=== PATIENT | female | born 1935 | race Caucasian/White ===

== ENCOUNTER 2016-06-14 22:45 | Inpatient (IN) | payer OTHER ==
[~2016-06-14] VITALS: Ht 154.9 cm; Wt 90.1 kg
[~2016-06-14 22:45] MED LIST: ACET-1487 PO; ALBUAER9 INH; CALC500C70 PO; CARB25TA12 PO; CEFU1TAB33 PO; CITA20TA9 PO; CLR10 PO; FURO-85 PO; GLC500 PO; INSDGIPEN SC; IPRA17AE2 INH; LIDO5DIS10 TD; MULTTAB58 PO; NVLGI/PEN SQ.; PRLSR20 PO; SIMV20TA2 PO; [UNRECOGNIZED DRUG - CODE] PO
[2016-06-14] MEDS ORDERED: SODIUM CHLORIDE 0.9% 500ML 500 ML IV STA (23:28)
--- NOTE | 2016-06-14 23:28 | EMERGENCY ROOM VISIT NOTE ---
History Report prepared by Maged: Tina Lopez Under the Supervision of: Dr. Maverick Elizondo M.D. First contact with patient: 23:17 Chief Complaint: GI ASSESSMENT Stated Complaint: SYNCOPE, VOMITING, DIARRHEA Nursing Triage Summary: Patient reports having sudden onset of Nausea and vomiting and loose stools around 10pm, patient went to the bathroom and had a syncople episode. EMS reports patient was lethergic upon arrival but would respond to verbal stimulation. EMS also reports patient had episodes ov emsis on the way to hospital. History of Present Illness The patient is a 80 year old female who presents to the Emergency Room via EMS with complaints of multiple episodes of vomiting and diarrhea that occurred this evening. The patient initially developed sudden onset nausea with vomiting and loose stool around 10PM. She was not feeling ill earlier in the day. While she was in the bathroom, she felt lightheaded. She denies loss of consciousness , falls, or head trauma. Per nursing notes, the patient had multiple episodes of emesis en route to the ED. Currently, the patient feels slightly lightheaded but does not feel nauseous. Denies chest pain, shortness of breath, abdominal pain, confusion, or other complaints. She has not taken any medications since the onset of her symptoms. Source of History: patient Onset: this evening Position: other (GI) Quality: other (vomiting and diarrhea) Timing: other (episodic) Associated Symptoms: No LOC, No SOB, No abdominal pain, No chest pain Note: Other symptoms: lightheadedness Review of Systems See HPI for pertinent positives & negatives. A total of 10 systems reviewed and were otherwise negative. Past Medical & Surgical Medical Problems: (1) Altered mental status (2) BPPV (benign paroxysmal positional vertigo) (3) Chronic diastolic CHF (congestive heart failure) (4) CKD (chronic kidney disease), stage III (5) COPD, mild (6) Depression (7) DM type 2 (diabetes mellitus, type 2) (8) Dyslipidemia (9) Gastroparesis (10) GERD (gastroesophageal reflux disease) (11) IBS (irritable bowel syndrome) (12) Lateral malleolar fracture (13) Left ulnar fracture (14) Osteoarthritis (15) Osteoporosis (16) Parkinson disease (17) possible sepsis (18) PVD (peripheral vascular disease) (19) Spinal stenosis Surgical Problems: (1) H/O spinal fusion (2) H/O tooth extraction (3) H/O tubal ligation (4) History of cataract surgery (5) History of cataract surgery (6) S/P cholecystectomy Family History Diabetes mellitus FH: cancer Social History Smoking Status: Former Smoker Alcohol Use: none Drug Use: none Marital Status: Housing Status: lives alone Occupation Status: retired Current/Historical Medications Scheduled Carbidopa/Levodopa (Sinemet 25MG/100MG), 1.5 TAB PO TID Furosemide (Lasix), 20 MG PO DAILY Insulin Aspart (Novolog Flexpen), 7 UNITS SQ AC Insulin Glargine (Lantus Solostar), 12 UNITS SC HS Lisinopril (Lisinopril), 2.5 MG PO QAM Metformin Hcl (Glucophage), 500 MG PO BID Multiple Vitamins W/ Minerals (Multivitamin Adults 50+), 1 TAB PO DAILY Omeprazole (Prilosec), 20 MG PO QAM Rasagiline Mesylate (Azilect), 1 MG PO QAM Simvastatin (Zocor), 20 MG PO HS Scheduled PRN Acetaminophen (Tylenol Arthritis Ext Rel), 650-1,300 MG PO BID PRN for Pain Albuterol Hfa (Ventolin Hfa), 2 PUFFS INH Q4 PRN for SOB/Wheezing Hydrocodone/Acetaminophen 5MG/325MG ([place] 5MG/325MG), 1 TABLET PO Q6 PRN for Pain Ipratropium [place] (Atrovent Hfa), 2 PUFFS INH Q4 PRN for SOB/Wheezing Lidocaine (Lidoderm Patch 5%), 1-2 PATCH TD DAILY PRN for Pain Loratadine (Claritin), 10 MG PO DAILY PRN for ALLERGIC REACTION Allergies Coded Allergies: Anesthetics, Amide (Verified Allergy, Unknown, UNKNOWN, 06/14/16) Celecoxib (Verified Allergy, Unknown, edema, 06/14/16) Pramipexole (Verified Allergy, Unknown, vomited, 06/14/16) Uncoded Allergies: TERRAMYCIN (Adverse Reaction, Intermediate, VOMITING, 10/06/15) Physical Exam Vital Signs Date Time Temp Pulse Resp B/P Pulse Ox O2 Delivery O2 Flow Rate FiO2 06/15/16 04:14 36.5 97 18 101/58 97 06/15/16 04:05 97 18 101/58 97 Room Air 06/15/16 03:01 36.5 100 20 144/67 94 Room Air 06/15/16 01:59 35.6 90 16 126/77 98 Room Air 06/15/16 01:02 86 18 112/65 96 Room Air 06/15/16 00:04 94 06/15/16 00:00 34.9 88 16 122/69 98 Room Air 06/14/16 22:55 91 18 104/67 92 Room Air Physical Exam GENERAL: Patient is elderly appearing, dehydrated appearing and in minimal distress. HEENT: No acute trauma, normocephalic atraumatic, mucous membranes dry, no nasal congestion, no scleral icterus. NECK: No stridor, no adenopathy, no meningismus, trachea is midline. LUNGS: No dyspnea. Clear to auscultation and equal bilaterally. No wheeze, no rhonchi. HEART: Mildly tachycardic rate and regular rhythm. No murmurs, rubs, gallops appreciated. ABDOMEN: Soft, nontender, bowel sounds positive, no masses appreciated, no peritonitis. BACK: No midline tenderness, no CVA tenderness EXTREMITIES: Normal motion all extremities, no cyanosis. Large nonedematous legs. NEUROLOGIC: Alert and oriented, no acute motor or sensory deficits, no focal weakness, cranial nerves grossly intact. SKIN: No rash, no jaundice, no diaphoresis. Medical Decision & Procedures ER Provider Diagnostic Interpretation: X ray results are stated below per my interpretation: Chest: 1 view: No infiltrate, no effusion, normal cardiac border. She has chronic lung disease similar to previous. CT results as stated below per interpretation by me and the radiologist: CT HEAD: Compared to 10/05/2015 No acute intracranial process. Chronic findings similar to prior study. Radiologist: Sherice Rodríguez MD Laboratory Results 06/14/16 22:18 Red Blood Count 4.17, Mean Corpuscular Volume 95.4, Mean Corpuscular Hemoglobin 32.4, Mean Corpuscular Hemoglobin Concent 33.9, Mean Platelet Volume 10.8, Neutrophils (%) (Auto) 50.6, Lymphocytes (%) (Auto) 36.6, Monocytes (%) (Auto) 9.6, Eosinophils (%) (Auto) 2.6, Basophils (%) (Auto) 0.2, Neutrophils # (Auto) 6.77, Lymphocytes # (Auto) 4.90, Monocytes # (Auto) 1.29, Eosinophils # (Auto) 0.35, Basophils # (Auto) 0.03 06/14/16 22:18 Test 06/14/16 01:13 06/14/16 22:18 Urine Color YELLOW Urine Appearance CLOUDY (CLEAR) Urine pH 5.0 (4.5-7.5) Urine Specific [place] 1.020 (1.000-1.030) Urine Protein NEG (NEG) Urine Glucose (UA) NEG (NEG) Urine Ketones 1+ (NEG) Urine Occult Blood NEG (NEG) Urine Nitrite NEG (NEG) Urine Bilirubin NEG (NEG) Urine Urobilinogen NEG (NEG) Urine Leukocyte Esterase MODERATE (NEG) Urine WBC (Auto) >30 /hpf (0-5) Urine RBC (Auto) 0-4 /hpf (0-4) Urine Hyaline Casts (Auto) 5-10 /lpf (0-5) Urine Epithelial Cells (Auto) 10-20 /lpf (0-5) Urine Bacteria (Auto) 1+ (NEG) Urine Pathogenic Casts /lpf (0) White Blood Count 13.39 K/uL (4.8-10.8) Red Blood Count 4.17 M/uL (4.2-5.4) Hemoglobin 13.5 g/dL (12.0-16.0) Hematocrit 39.8 % (37-47) Mean Corpuscular Volume 95.4 fL (80-100) Mean Corpuscular Hemoglobin 32.4 pg (25-34) Mean Corpuscular Hemoglobin Concent 33.9 g/dl (32-36) Platelet Count 364 K/uL (130-400) Mean Platelet Volume 10.8 fL (7.4-10.4) Neutrophils (%) (Auto) 50.6 % Lymphocytes (%) (Auto) 36.6 % Monocytes (%) (Auto) 9.6 % Eosinophils (%) (Auto) 2.6 % Basophils (%) (Auto) 0.2 % Neutrophils # (Auto) 6.77 K/uL (1.4-6.5) Lymphocytes # (Auto) 4.90 K/uL (1.2-3.4) Monocytes # (Auto) 1.29 K/uL (0.11-0.59) Eosinophils # (Auto) 0.35 K/uL (0-0.5) Basophils # (Auto) 0.03 K/uL (0-0.2) RDW Standard Deviation 47.8 fL (36.4-46.3) RDW Coefficient of Variation 13.9 % (11.5-14.5) Immature Granulocyte % (Auto) 0.4 % Immature Granulocyte # (Auto) 0.05 K/uL (0.00-0.02) Prothrombin Time 10.9 SECONDS (9.0-12.0) Prothromb Time International Ratio 1.0 (0.9-1.1) Activated Partial Thromboplast Time 26.4 SECONDS (21.0-31.0) Partial Thromboplastin Ratio 1.0 Anion Gap 13.0 mmol/L (3-11) Est Creatinine Clear Calc Drug Dose 44.4 ml/min Estimated GFR () 55.7 Estimated GFR (Non- 48.1 BUN/Creatinine Ratio 24.9 (10-20) Calcium Level 8.9 mg/dl (8.5-10.1) Phosphorus Level 3.5 mg/dl (2.5-4.9) Magnesium Level 1.6 mg/dl (1.8-2.4) Total Bilirubin 0.3 mg/dl (0.2-1) Direct Bilirubin 0.1 mg/dl (0-0.2) Aspartate Amino Transf (AST/SGOT) 18 U/L (15-37) Alanine Aminotransferase (ALT/SGPT) 7 U/L (12-78) Alkaline Phosphatase 98 U/L (45-117) Total Creatine Kinase 65 U/L (26-192) Creatine Kinase MB 0.7 ng/ml (0.5-3.6) Creatine Kinase MB Ratio 1.1 (0-3.0) Troponin I < 0.015 ng/ml (0-0.045) Total Protein 7.9 gm/dl (6.4-8.2) Albumin 4.0 gm/dl (3.4-5.0) Lipase 110 U/L (73-393) Laboratory results as reviewed by me. Medications Administered Medications (Trade) Dose Ordered Sig/Brian Route Start Time Stop Time Status Last Admin Dose Admin Sodium Chloride (Nss 500ml) 500 ml @ 999 mls/hr Q31M STAT IV 06/14/16 23:28 06/14/16 23:58 DC 06/14/16 23:46 999 MLS/HR Ondansetron HCl (Zofran Inj) 4 mg NOW STAT IV 06/14/16 23:29 06/14/16 23:30 DC 06/14/16 23:46 4 MG Ceftriaxone Sodium (Rocephin Inj) 1 gm NOW STAT IV 06/15/16 02:32 06/15/16 02:33 DC 06/15/16 04:00 1 GM ECG Indication: other (lightheaded) Rate (beats per minute): 94 Rhythm: normal sinus Findings: no acute ischemic change, no ectopy ED Course 2322: The patient was evaluated in room B4. A complete history and physical exam was performed. 232: Ordered NSS 500 ml @ 999 mls/hr IV, Zofran Inj 4m g IV. 0055: I reassessed the patient. Urine sample will be obtained. 231: Ordered Rocephin Inj 1 gm IV. 0245: I reassessed the patient. She was asleep and her temperature was improving. 0300: I discussed the case with Dr. Farhan Collier Hospitalist. He requested that I order blood cultures and a lactic. The patient will be evaluated for further management. Medical Decision Differential: Sepsis, Infectious (UTI/Pneumonia/Meningitis/etc), Metabolic/ Electrolyte Abnormality, Cardiac, Hepatic, Endocrine, Toxicologic, Neurologic, amongst other pathologies entertained. 80 yr old female arrives with complaint of nausea, vomiting, diarrhea and near syncopal event along with feeling weak. Consistent with local GI bug going around though with near syncope felt further evaluation necessary. Found to be mildly hypothermic and with elevated WBC felt that UA straight cath necessary as no urination. CXR clear. UA is concerning for infection though difficult obtaining thus delay. Patient was initially given zofran and fluids stating feeling much improved. She is not bacteremic nor septic appearing however with findings will go ahead and get cultures/lactic acid. She has no clear evidence that this was ACS related. She is stable, no distress and sleeping comfortably. Given constellation of findings will being in for further monitoring. Consults Time Called: 0235 Consulting Physician: Dr. Farhan Collier Hospitalist Returned Call: 0300 I discussed the case with him. He requested that I order blood cultures and a lactic. The patient will be evaluated for further management. Impression Primary Impression: UTI (urinary tract infection) Additional Impressions: Hypomagnesemia Hypothermia Nausea, vomiting and diarrhea Scribe Attestation The scribe's documentation has been prepared under my direction and personally reviewed by me in its entirety. I confirm that the note above accurately reflects all work, treatment, procedures, and medical decision making performed by me. Departure Information Dispostion Being Evaluated By Hospitalist Referrals Tsering Petersen M.D. (PCP) Patient Instructions My [facility] Problem Qualifiers Primary Impression: UTI (urinary tract infection) Urinary tract infection type: acute cystitis Hematuria presence: without hematuria Qualified Codes: N30.00 - Acute cystitis without hematuria Additional Impressions: Hypothermia Encounter type: initial encounter Qualified Codes: T68.XXXA - Hypothermia, initial encounter
[2016-06-14] MEDS ORDERED: ONDANSETRON INJ 2 MG/ML 2 ML VIAL IV STA (23:29)
[2016-06-14 23:37] LABS: BASO % 0.2 %; BASO ABS # 0.03 K/uL (0-0.2); COMPLETE YES; EOS % 2.6 %; HEMATOCRIT 39.8 % (37-47); IG% 0.4 %; LYMPH % 36.6 %; MEAN CELL VOLUME 95.4 fL (80-100); MEAN CORPUSCULAR HEMOGLOBIN 32.4 pg (25-34); MEAN CORPUSCULAR HGB CONC 33.9 g/dl (32-36); MEAN PLATELET VOLUME 10.8 fL (7.4-10.4); MONO % 9.6 %; NEUT % 50.6 %; PLATELET COUNT 364 K/uL (130-400); RED BLOOD COUNT 4.17 M/uL (4.2-5.4); WHITE BLOOD COUNT 13.39 K/uL (4.8-10.8)
[2016-06-14 23:44] LABS: PROTHROMBIN TIME (PATIENT) 10.9 SECONDS (9.0-12.0)
[2016-06-14] MEDS ORDERED: RASA1TAB PO (23:53)
[2016-06-14] MEDS ORDERED: PRLSR20 PO (23:54)
[2016-06-14] MEDS ORDERED: MULT-916 PO (23:55)
[2016-06-14] MEDS ORDERED: GLC/500 PO (23:56)
[2016-06-14] MEDS ORDERED: LISI2.5T5 PO (23:58)
[2016-06-14] MEDS ORDERED: HYDR-5688 PO (23:58)
[2016-06-15] MEDS ORDERED: INSDGIPEN SC
[2016-06-15] MEDS ORDERED: NVLGI/PEN SQ
[2016-06-15 00:01] LABS: ALT/SGPT 7 U/L (12-78); BLOOD UREA NITROGEN 27 mg/dl (7-18); BUN/CREATININE RATIO 24.9 (10-20); CALCIUM 8.9 mg/dl (8.5-10.1); CARBON DIOXIDE 25 mmol/L (21-32); CHLORIDE 105 mmol/L (98-107); GLUCOSE 92 mg/dl (70-99); MAGNESIUM 1.6 mg/dl (1.8-2.4); POTASSIUM 3.5 mmol/L (3.5-5.1); SODIUM 143 mmol/L (136-145)
[2016-06-15] MEDS ORDERED: NF656 TD (00:02)
[2016-06-15] MEDS ORDERED: VNTHFA/IN INH (00:03)
[2016-06-15] MEDS ORDERED: ATRIN INH (00:03)
[2016-06-15 00:05] LABS: ALKALINE PHOSPHATASE 98 U/L (45-117); AST/SGOT 18 U/L (15-37); CKMB/CK RATIO 1.1 (0-3.0); PHOSPHORUS 3.5 mg/dl (2.5-4.9)
[2016-06-15 01:33] LABS: URINE APPEARANCE CLOUDY (CLEAR); URINE BILIRUBIN NEG (NEG); URINE COLOR YELLOW; URINE NITRITE NEG (NEG); UROBILINOGEN NEG (NEG); ZZUR CULT IF INDIC CLEAN CATCH YES
[2016-06-15 01:57] LABS: MANUAL MICROSCOPIC REQUIRED? NO; REVIEW REQ? YES
[2016-06-15] MEDS: CEFTRIAXONE SOD INJ 1 GM ADDVIAL IV STA ×2 (03:00→04:00)
[2016-06-15] MEDS ORDERED: ONDANSETRON INJ 2 MG/ML 2 ML VIAL IV PRN (03:15)
--- NOTE | 2016-06-15 03:48 | History and Physical ---
History & Physical Date & Time of Service: Jun 15, 2016 at 03:47 . Chief Complaint: nausea, vomiting, diarrhea, confusion . Primary Care Physician: Tsering Petersen M.D. . History of Present Illness Source: patient, clinic records, hospital records 80 YO female followed by Dr. Petersen. History of diastolic CHF, DM, and other problems noted below. She was in her usual state of health until this evening when she developed loose stools followed by nausea and vomiting. No associated abdominal pain. No melena or hematochezia. No fever, but she had some chills and sweats. No dysuria or hematuria. Family noted that she was confused. Brought to ED for evaluation. . Past Medical/Surgical History Medical Problems: (1) BPPV (benign paroxysmal positional vertigo) Status: Chronic (2) Chronic diastolic CHF (congestive heart failure) Status: Chronic (3) CKD (chronic kidney disease), stage III Status: Chronic (4) COPD, mild Status: Chronic (5) Depression Status: Chronic (6) DM type 2 (diabetes mellitus, type 2) Status: Chronic (7) Dyslipidemia Status: Chronic (8) Gastroparesis Status: Chronic (9) GERD (gastroesophageal reflux disease) Status: Chronic (10) IBS (irritable bowel syndrome) Status: Chronic (11) Lateral malleolar fracture Permanent Comment: right, s/p repair Status: Chronic (12) Left ulnar fracture Permanent Comment: s/p repair Status: Chronic (13) Osteoarthritis Status: Chronic (14) Osteoporosis Status: Chronic (15) Parkinson disease Status: Chronic (16) PVD (peripheral vascular disease) Status: Chronic (17) Spinal stenosis Status: Chronic Surgical Problems: (1) H/O spinal fusion Status: Chronic (2) H/O tooth extraction Status: Chronic (3) H/O tubal ligation Status: Chronic (4) History of cataract surgery Status: Chronic (5) History of cataract surgery Status: Chronic (6) S/P cholecystectomy Status: Chronic Family History Diabetes mellitus FH: cancer Social History Smoking Status: Former Smoker Alcohol Use: none Drug Use: none Marital Status: Housing status: lives with family Occupational Status: retired Immunizations History of Influenza Vaccine: Yes Influenza Vaccine Date: Mar 01, 2015 History of Tetanus Vaccine?: Yes Tetanus Immunization Date: Mar 19, 2012 History of Pneumococcal: Yes Pneumococcal Date: Nov 24, 2014 History of Hepatitis B Vaccine: Unknown Multi-Drug Resistant Organisms History of MDRO: No Allergies Coded Allergies: Anesthetics, Amide (Verified Allergy, Unknown, UNKNOWN, 06/14/16) Celecoxib (Verified Allergy, Unknown, edema, 06/14/16) Pramipexole (Verified Allergy, Unknown, vomited, 06/14/16) Uncoded Allergies: TERRAMYCIN (Adverse Reaction, Intermediate, VOMITING, 10/06/15) Home Medications Scheduled Carbidopa/Levodopa (Sinemet 25MG/100MG), 1.5 TAB PO TID Furosemide (Lasix), 20 MG PO DAILY Insulin Aspart (Novolog Flexpen), 7 UNITS SQ AC Insulin Glargine (Lantus Solostar), 12 UNITS SC HS Lisinopril (Lisinopril), 2.5 MG PO QAM Metformin Hcl (Glucophage), 500 MG PO BID Multiple Vitamins W/ Minerals (Multivitamin Adults 50+), 1 TAB PO DAILY Omeprazole (Prilosec), 20 MG PO QAM Rasagiline Mesylate (Azilect), 1 MG PO QAM Simvastatin (Zocor), 20 MG PO HS Scheduled PRN Acetaminophen (Tylenol Arthritis Ext Rel), 650-1,300 MG PO BID PRN for Pain Albuterol Hfa (Ventolin Hfa), 2 PUFFS INH Q4 PRN for SOB/Wheezing Hydrocodone/Acetaminophen 5MG/325MG ([place] 5MG/325MG), 1 TABLET PO Q6 PRN for Pain Ipratropium [place] (Atrovent Hfa), 2 PUFFS INH Q4 PRN for SOB/Wheezing Lidocaine (Lidoderm Patch 5%), 1-2 PATCH TD DAILY PRN for Pain Loratadine (Claritin), 10 MG PO DAILY PRN for ALLERGIC REACTION Review of Systems Constitutional: + chills, + sweats, No fever, No weight loss Eyes: No diplopia, No worsening of vision ENT: + nasal symptoms, No hearing loss, No sore throat Respiratory: No cough, No shortness of breath Cardiovascular: + edema (chronic LE edema), No chest pain Abdomen: + diarrhea, + nausea, + vomiting, No GI bleeding, No pain Musculoskeletal: + joint pain Genitourinary - Female: No dysuria, No hematuria Neurologic: + problem reported (Parkinson's disease) Endocrine: + excessive thirst, + excessive urination, + problem reported ( blood sugars fluctuate) Hematologic / Lymphatic: No abnormal bleeding/bruising Integumentary: No new/changing skin lesions, No rash Physical Exam Vital Signs Date Time Temp Pulse Resp B/P Pulse Ox O2 Delivery O2 Flow Rate FiO2 06/15/16 03:01 36.5 100 20 144/67 94 Room Air 06/15/16 01:59 35.6 90 16 126/77 98 Room Air 06/15/16 01:02 86 18 112/65 96 Room Air 06/15/16 00:04 94 06/15/16 00:00 34.9 88 16 122/69 98 Room Air 06/14/16 22:55 91 18 104/67 92 Room Air General Appearance: WD/WN, no apparent distress, + obese Head: normocephalic, atraumatic Eyes: normal inspection, PERRL, EOMI, sclerae normal (conjunctivae pink) ENT: normal ENT inspection, hearing grossly normal, pharynx normal, + pertinent finding (endentulous) Neck: supple, no adenopathy, thyroid normal, no JVD, trachea midline Respiratory/Chest: lungs clear, no respiratory distress, no accessory muscle use Cardiovascular: regular rate, rhythm, no edema, no gallop, no JVD, no murmur, + pertinent finding (chronic-appearing lymphedema bilateral lower extremities) Abdomen/GI: non tender, soft, no organomegaly, no pulsatile mass, + pertinent finding (quiet bowel sounds) Back: no CVA tenderness Extremities/Musculoskelatal: no calf tenderness, normal capillary refill, + pedal edema, + pertinent finding (no diabetic foot lesions) Neurologic/Psych: print color matcher II-XII nml as tested (PERRL, EOMI, no facial palsy), alert, normal mood/affect, oriented x 3 Skin: normal color, warm/dry, no rash Lymphatic: no adenopathy Diagnostics Laboratory Results Results Past 24 Hours Test 06/14/16 22:18 Range/Units White Blood Count 13.39 4.8-10.8 K/uL Red Blood Count 4.17 4.2-5.4 M/uL Hemoglobin 13.5 12.0-16.0 g/dL Hematocrit 39.8 37-47 % Mean Corpuscular Volume 95.4 80-100 fL Mean Corpuscular Hemoglobin 32.4 25-34 pg Mean Corpuscular Hemoglobin Concent 33.9 32-36 g/dl Platelet Count 364 130-400 K/uL Mean Platelet Volume 10.8 7.4-10.4 fL Neutrophils (%) (Auto) 50.6 % Lymphocytes (%) (Auto) 36.6 % Monocytes (%) (Auto) 9.6 % Eosinophils (%) (Auto) 2.6 % Basophils (%) (Auto) 0.2 % Neutrophils # (Auto) 6.77 1.4-6.5 K/uL Lymphocytes # (Auto) 4.90 1.2-3.4 K/uL Monocytes # (Auto) 1.29 0.11-0.59 K/uL Eosinophils # (Auto) 0.35 0-0.5 K/uL Basophils # (Auto) 0.03 0-0.2 K/uL RDW Standard Deviation 47.8 36.4-46.3 fL RDW Coefficient of Variation 13.9 11.5-14.5 % Immature Granulocyte % (Auto) 0.4 % Immature Granulocyte # (Auto) 0.05 0.00-0.02 K/uL Prothrombin Time 10.9 9.0-12.0 SECONDS Prothromb Time International Ratio 1.0 0.9-1.1 Activated Partial Thromboplast Time 26.4 21.0-31.0 SECONDS Partial Thromboplastin Ratio 1.0 Sodium Level 143 136-145 mmol/L Potassium Level 3.5 3.5-5.1 mmol/L Chloride Level 105 98-107 mmol/L Carbon Dioxide Level 25 21-32 mmol/L Anion Gap 13.0 3-11 mmol/L Blood Urea Nitrogen 27 7-18 mg/dl Creatinine 1.10 0.60-1.20 mg/dl Est Creatinine Clear Calc Drug Dose 44.4 ml/min Estimated GFR () 55.7 Estimated GFR (Non- 48.1 BUN/Creatinine Ratio 24.9 10-20 Random Glucose 92 70-99 mg/dl Calcium Level 8.9 8.5-10.1 mg/dl Phosphorus Level 3.5 2.5-4.9 mg/dl Magnesium Level 1.6 1.8-2.4 mg/dl Total Bilirubin 0.3 0.2-1 mg/dl Direct Bilirubin 0.1 0-0.2 mg/dl Aspartate Amino Transf (AST/SGOT) 18 15-37 U/L Alanine Aminotransferase (ALT/SGPT) 7 12-78 U/L Alkaline Phosphatase 98 45-117 U/L Total Creatine Kinase 65 26-192 U/L Creatine Kinase MB 0.7 0.5-3.6 ng/ml Creatine Kinase MB Ratio 1.1 0-3.0 Troponin I < 0.015 0-0.045 ng/ml Total Protein 7.9 6.4-8.2 gm/dl Albumin 4.0 3.4-5.0 gm/dl Lipase 110 73-393 U/L Microbiology Results 06/15/16 Blood Culture, Dori Batch Pending 06/15/16 Blood Culture, Dori Batch Pending Diagnostic Radiology PORT CXR (preliminary reading by undersigned): right rib fractures ~ 5th and 6th ribs posteriorly no infiltrates, effusions, CHF CT HEAD (preliminary report by [facility]): chronic findings no acute changes . EKG EKG performed at 23:38 reviewed and demonstrated NSR at 94 / minute, no acute ST or T-wave changes. . Impression Assessment and Plan POSSIBLE SEPSIS Presented with nausea, vomiting, diarrhea, confusion. Rectal temp in ED 34.9. Tachycardic as high as 110. WBC 13,000. Meets SIRS criteria. May have sepsis- source uncertain, possibly GI or urinary tract. Cath UA showed moderate leukocyte esterase, > 30 WBC's, 1+ bacteria. Hemodynamically stable. Serum lactate 0.8. Blood and urine cultures obtained. Received broad spectrum IV coverage with ceftriaxone in ED. Will change antibiotic therapy to piperacillin / tazobactam for broader coverage pending culture results. NAUSEA, VOMITING, DIARRHEA May have viral gastroenteritis or other process. Has taken antibiotics for UTI's, but not in recent months. Check stools for C diff and routine enteric pathogens. Ischemic bowel unlikely with normal lactate. Further evaluation if symptoms do not improve. ALTERED MENTAL STATUS Noted by family at home. Head CT negative. Probably encephalopathy secondary to infection. Improved in ED. Follow. HYPOMAGNESEMIA Serum Mg = 1.6. IV repletion. Follow. CHRONIC DIASTOLIC CHF Compensated. Hold furosemide due to GI symptoms. Follow. DM TYPE 2 Usually fairly well-controlled. Hold oral agents due to acute illness. Lantus + NovoLog per protocol. VTE PROPHYLAXIS Moderate risk for VTE. SQ heparin. Ambulate. RESUSCITATION STATUS Discussed with patient. She has a living will. She prefers a natural passing does not wish to have extraordinary measures, including CPR, attempted in the event of a cardiopulmonary arrest under any circumstances. Therefore, code status = "Level 5" (DNR). . VTE Prophylaxis VTE Risk Assessment Done? Y/N: Yes Risk Level: Moderate Given or contraindicated: Unfractionated heparin SQ
[2016-06-15 04:41] VITALS: BP 149/79; PULSE 105; TEMP 36.8; O2SAT 96; BMI 36.2
[2016-06-15] MEDS ORDERED: PIPERACILL/TAZOBAC IV 0 GM in DEXTROSE 5% 100ML 100 ML IV SCH (06:00)
[2016-06-15] MEDS ORDERED: IPRATROPIUM BROMIDE HFA INHALER INH PRN (06:00)
[2016-06-15] MEDS ORDERED: ALBUTEROL HFA 8 GM INHALER INH PRN (06:00)
[2016-06-15] MEDS ORDERED: PIPERACILL/TAZOBAC IV 4.5 GM in DEXTROSE 5% 100ML IV ONE (06:30)
[2016-06-15] MEDS ORDERED: PIPERACILL/TAZOBAC CONSULT ACTIVE PRN (06:30)
--- NOTE | 2016-06-15 06:39 | DIAGNOSTIC IMAGING REPORT ---
CHEST ONE VIEW PORTABLE CLINICAL HISTORY: Generalized Weakness SYNCOPE, VOMITING, DIARRHEA COMPARISON STUDY: No previous studies for comparison. FINDINGS: The heart is at the upper limits of normal in size. There is aortic tortuosity. There is no failure. There is no focal pulmonary consolidation. There are old bilateral rib fractures. There is an old proximal left humeral deformity. No pleural effusions are visualized.[ IMPRESSION: No active disease in the chest. Electronically signed by: Nile Fulton M.D. 06/15/2016 6:37 AM Dictated Date/Time: 06/15/2016 6:37 AM
[2016-06-15 06:41] LABS: HEMATOCRIT 36.7 % (37-47); MEAN CELL VOLUME 96.1 fL (80-100); MEAN CORPUSCULAR HEMOGLOBIN 31.7 pg (25-34); MEAN PLATELET VOLUME 10.5 fL (7.4-10.4); PLATELET COUNT 297 K/uL (130-400); RED BLOOD COUNT 3.82 M/uL (4.2-5.4); WHITE BLOOD COUNT 10.11 K/uL (4.8-10.8)
--- NOTE | 2016-06-15 06:50 | DIAGNOSTIC IMAGING REPORT ---
CT HEAD WITHOUT CONTRAST (CT) CLINICAL HISTORY: Syncope, generalized weakness. COMPARISON STUDY: 10/05/2015 TECHNIQUE: Axial CT of the brain is performed from the vertex to the skull base. IV contrast was not administered for this examination. CT DOSE: 537.48 mGy.cm FINDINGS: No intra or extra-axial mass lesions are visualized. There is no CT evidence of acute cortical infarction. There is no evidence of midline shift. There is no acute hemorrhage. No calvarial fractures are visualized. There are patchy white matter hypodensities likely on a small vessel basis. There is no evidence of pathologic ventricular dilatation. There is no evidence of acute sinusitis IMPRESSION: No acute intracranial findings Electronically signed by: Nile Fulton M.D. 06/15/2016 6:48 AM Dictated Date/Time: 06/15/2016 6:47 AM
[2016-06-15 07:18] LABS: BUN/CREATININE RATIO 24.4 (10-20); CALCIUM 8.8 mg/dl (8.5-10.1); CREATININE 1.1 mg/dl (0.60-1.20); POTASSIUM 4.2 mmol/L (3.5-5.1)
[2016-06-15] MEDS: MAG SULFATE IV SCH ×2 (07:48→14:16)
[2016-06-15] MEDS: LACTATED RINGER S IV SCH ×2 (07:48→14:16)
[2016-06-15 07:50] VITALS: BP 102/66; PULSE 99; TEMP 36.4; O2SAT 94
[2016-06-15] MEDS: INSULIN ASPART 100 UNITS/ML 3 ML PEN SC SCH ×4 (07:51→21:00)
[2016-06-15] MEDS: HEPARIN SOD 5000 UNIT/0.5 ML CARP SQ SCH ×2 (07:53→21:00)
[2016-06-15] MEDS: PANTOprazole SOD 40 MG TAB PO SCH (07:55)
[2016-06-15] MEDS: ACETAMINOPHEN 325 MG TAB PO PRN ×2 (07:55→23:57)
[2016-06-15] MEDS: LISINOPRIL 2.5 MG TAB PO SCH (07:56)
[2016-06-15] MEDS: CARBIDOPA/LEVODOPA 25/100MG TAB PO SCH ×3 (07:57→20:50)
[2016-06-15] MEDS: RASAGILINE 0.5 MG TAB PO SCH (07:58)
[2016-06-15] MEDS: PIPERACILL/TAZOBAC IV 4.5 GM in DEXTROSE 5% 100ML IV SCH ×2 (10:06→18:26)
[2016-06-15 10:59] LABS: ESTIMATED AVERAGE GLUCOSE 183 mg/dl; HA1C FLAG Normal (Normal)
--- NOTE | 2016-06-15 13:28 | Progress Note ---
Medicine Progress Note Date & Time of Visit: Jun 15, 2016 at 13:01. Subjective 80 yo F that developed acute vomiting and diarrhea last night around 9pm. She came to the ER as her caregiver activated her life alert system when she became altered. She reports feeling better this morning after some IVF, and she is tolerating clears right now. When I mentioned mashed potatoes, she was excited about that, so will advance her diet to full liquids for this evening. Cautioned her against dairy, caffeine, and sugar. Denies abdominal pain, chest pain, shortness of breath today. She reports one episode of loose stool this morning. Otherwise feels better today. Objective Last 8 Hrs Date Time Temp Pulse Resp B/P Pulse Ox O2 Delivery O2 Flow Rate FiO2 06/15/16 08:00 Room Air 06/15/16 07:50 36.4 99 16 102/66 94 Room Air Physical Exam: GEN: WNWD, in no acute distress, alert and appropriate, in bedside chair HEENT: NC/AT, normal sclerae CARDIO: reg rate, S1/2 heard without m/g/r LUNGS: CTA bilaterally, no crackles, rales or wheezes, good diaphragmatic excursion ABD: +BS, soft, non-tender, non-distended, no rebound or guarding EXTREMITY: no LE swelling or edema, extremities are warm and well-perfused NEURO: CN 2-12 grossly intact, sensation intact throughout MUSC: moves all extremities equally, no gross focal deficits SKIN: warm and dry Laboratory Results: Last 24 Hours Test 06/14/16 22:18 06/15/16 04:07 06/15/16 06:26 06/15/16 07:04 White Blood Count 13.39 K/uL 10.11 K/uL Red Blood Count 4.17 M/uL 3.82 M/uL Hemoglobin 13.5 g/dL 12.1 g/dL Hematocrit 39.8 % 36.7 % Mean Corpuscular Volume 95.4 fL 96.1 fL Mean Corpuscular Hemoglobin 32.4 pg 31.7 pg Mean Corpuscular Hemoglobin Concent 33.9 g/dl 33.0 g/dl Platelet Count 364 K/uL 297 K/uL Mean Platelet Volume 10.8 fL 10.5 fL Neutrophils (%) (Auto) 50.6 % Lymphocytes (%) (Auto) 36.6 % Monocytes (%) (Auto) 9.6 % Eosinophils (%) (Auto) 2.6 % Basophils (%) (Auto) 0.2 % Neutrophils # (Auto) 6.77 K/uL Lymphocytes # (Auto) 4.90 K/uL Monocytes # (Auto) 1.29 K/uL Eosinophils # (Auto) 0.35 K/uL Basophils # (Auto) 0.03 K/uL RDW Standard Deviation 47.8 fL 48.5 fL RDW Coefficient of Variation 13.9 % 13.9 % Immature Granulocyte % (Auto) 0.4 % Immature Granulocyte # (Auto) 0.05 K/uL Prothrombin Time 10.9 SECONDS Prothromb Time International Ratio 1.0 Activated Partial Thromboplast Time 26.4 SECONDS Partial Thromboplastin Ratio 1.0 Sodium Level 143 mmol/L 142 mmol/L Potassium Level 3.5 mmol/L 4.2 mmol/L Chloride Level 105 mmol/L 106 mmol/L Carbon Dioxide Level 25 mmol/L 25 mmol/L Anion Gap 13.0 mmol/L 11.0 mmol/L Blood Urea Nitrogen 27 mg/dl 27 mg/dl Creatinine 1.10 mg/dl 1.10 mg/dl Est Creatinine Clear Calc Drug Dose 44.4 ml/min 42.2 ml/min Estimated GFR () 55.7 55.7 Estimated GFR (Non- 48.1 48.1 BUN/Creatinine Ratio 24.9 24.4 Random Glucose 92 mg/dl 200 mg/dl Calcium Level 8.9 mg/dl 8.8 mg/dl Phosphorus Level 3.5 mg/dl Magnesium Level 1.6 mg/dl Total Bilirubin 0.3 mg/dl 0.4 mg/dl Direct Bilirubin 0.1 mg/dl Aspartate Amino Transf (AST/SGOT) 18 U/L 13 U/L Alanine Aminotransferase (ALT/SGPT) 7 U/L 11 U/L Alkaline Phosphatase 98 U/L 80 U/L Total Creatine Kinase 65 U/L Creatine Kinase MB 0.7 ng/ml Creatine Kinase MB Ratio 1.1 Troponin I < 0.015 ng/ml Total Protein 7.9 gm/dl 6.8 gm/dl Albumin 4.0 gm/dl 3.4 gm/dl Lipase 110 U/L 62 U/L Bedside Lactic Acid Venous 0.80 mmol/L Estimated Average Glucose 183 mg/dl Hemoglobin A1c 8.0 % Lactic Acid Level 1.5 mmol/L Globulin 3.4 gm/dl Albumin/Globulin Ratio 1.0 Bedside Glucose 193 mg/dl Test 06/15/16 11:41 Bedside Glucose 218 mg/dl Date/Time Source Procedure Growth Status 06/15/16 04:02 Blood Blood Culture Pending Received 06/15/16 03:57 Blood Blood Culture Pending Received Assessment & Plan 80 yo F with acute gastroenteritis that began last night. Acute Gastroenteritis Presented with nausea, vomiting, diarrhea, confusion. Rectal temp in ED 34.9. May have viral gastroenteritis or other process. Check stools for C diff and routine enteric pathogens. Ischemic bowel unlikely with normal lactate. Tachycardic as high as 110-->improved to 90s today WBC 13,000-->resolved to 10K -->overall improved, will finish the 500cc of fluid left in this bag at lower rate 100cc/hr, then stop. -->still waiting on stool studies, will add norovirus as multiple family members have been sick with similar symptoms. BACTERIURIA Cath UA showed moderate leukocyte esterase, > 30 WBC's, 1+ bacteria. Urine cultures obtained. Has taken antibiotics for UTI's, but not in recent months. Received broad spectrum IV coverage with ceftriaxone in ED. Will change antibiotic therapy to piperacillin / tazobactam for broader coverage pending culture results. -->06/15: cont Zosyn for now until culture results return ALTERED MENTAL STATUS Noted by family at home. Head CT negative. Probably encephalopathy secondary to infection. Improved in ED-->today is resolved HYPOMAGNESEMIA Serum Mg = 1.6. IV repletion -->will give an additional 2 grams of MgSO4 now and recheck in am CHRONIC DIASTOLIC CHF Compensated. Hold furosemide due to GI symptoms. DM TYPE 2 Usually fairly well-controlled. Hold oral agents due to acute illness. Lantus + NovoLog per protocol. VTE PROPHYLAXIS Moderate risk for VTE. SQ heparin. Ambulate. RESUSCITATION STATUS Discussed with patient. She has a living will. She prefers a natural passing does not wish to have extraordinary measures, including CPR, attempted in the event of a cardiopulmonary arrest under any circumstances. Therefore, code status = "Level 5" (DNR). Chelle Becker DO [facility] Hospitalist Current Inpatient Medications: Current Inpatient Medications Medications (Trade) Dose Ordered Sig/Brian Route Start Time Stop Time Status Last Admin Dose Admin Acetaminophen (Tylenol Tab) 650 mg Q4H PRN PO 06/15/16 03:15 07/15/16 03:14 06/15/16 07:55 650 MG Ondansetron HCl (Zofran Inj) 4 mg Q6H PRN IV 06/15/16 03:15 07/15/16 03:14 Albuterol (Ventolin Hfa Inhaler) 2 puffs Q4 PRN INH 06/15/16 06:00 07/15/16 05:59 Carbidopa/Levodopa (Sinemet 25/ 100MG Tab) 1.5 tab TID PO 06/15/16 09:00 07/15/16 08:59 06/15/16 07:57 1.5 TAB Ipratropium [place] (Atrovent Hfa Inhaler) 2 puffs Q4 PRN INH 06/15/16 06:00 07/15/16 05:59 Lisinopril (Zestril Tab) 2.5 mg QAM PO 06/15/16 09:00 07/15/16 08:59 06/15/16 07:56 2.5 MG Simvastatin (Zocor Tab) 20 mg HS PO 06/15/16 21:00 07/15/16 20:59 Pantoprazole Sodium (Protonix Tab) 40 mg QAM PO 06/15/16 09:00 07/15/16 08:59 06/15/16 07:55 40 MG Rasagiline (Azilect) 1 mg DAILY PO 06/15/16 09:00 07/15/16 08:59 06/15/16 07:58 1 MG Insulin Glargine (Lantus Solostar Pen) 12 unit HS SC 06/15/16 21:00 07/15/16 20:59 Insulin Aspart (novoLOG ASPART) SLIDING SCAL... ACHS SC 06/15/16 07:00 07/15/16 06:59 06/15/16 12:11 4 UNITS Heparin Sodium (Porcine) 5000 unit 5,000 unit Q12 SQ 06/15/16 09:00 07/15/16 08:59 06/15/16 07:53 5,000 UNIT Magnesium Sulfate 1 gm/Lactated Ringer's 1,002 ml @ 125 mls/hr Q8H1M IV 06/15/16 06:15 07/15/16 06:14 06/15/16 07:48 125 MLS/HR Piperacillin Sod/ Tazobactam Sod/ Dextrose (Zosyn Iv/D5 100ml) 120 ml @ 30 mls/hr Q8H IV 06/15/16 10:00 06/20/16 09:59 06/15/16 10:06 30 MLS/HR Piperacillin Sod/ Tazobactam Sod (Consult) 1 ea UD PRN N/A 06/15/16 06:30 07/15/16 06:29
[2016-06-15] MEDS: MAGNESIUM SULFATE 1GM / D5W 1 GM in PREMIXED IN D5W 100 ML IV SCH ×2 (14:17→15:26)
[2016-06-15 15:29] VITALS: BP 119/83; PULSE 98; TEMP 36.6; O2SAT 96
[2016-06-15 19:41] VITALS: BP 107/68; PULSE 77; TEMP 36.3; O2SAT 100
[2016-06-15 20:00] VITALS: O2SAT 100
[2016-06-15] MEDS: SIMVASTATIN 20 MG TAB PO SCH (20:51)
[2016-06-15] MEDS: INSULIN GLARGINE SOLOSTAR 100 UNITS/ML 3 ML PEN SC SCH (20:59)
[2016-06-15 23:25] VITALS: BP 108/66; PULSE 75; TEMP 36.3; O2SAT 95
[2016-06-16] VITALS (9 sets, daily range): BP systolic 95–105; BP diastolic 57–68; PULSE 69–94; TEMP 36.3–36.5; O2SAT 94–97
[2016-06-16] MEDS: PIPERACILL/TAZOBAC IV 4.5 GM in DEXTROSE 5% 100ML IV SCH ×3 (02:10→17:51)
[2016-06-16 07:18] LABS: HEMATOCRIT 37.7 % (37-47); MEAN CELL VOLUME 95.2 fL (80-100); MEAN CORPUSCULAR HEMOGLOBIN 32.1 pg (25-34); MEAN CORPUSCULAR HGB CONC 33.7 g/dl (32-36); MEAN PLATELET VOLUME 10.6 fL (7.4-10.4); PLATELET COUNT 306 K/uL (130-400); RED BLOOD COUNT 3.96 M/uL (4.2-5.4); WHITE BLOOD COUNT 10.27 K/uL (4.8-10.8)
[2016-06-16 07:42] LABS: BUN/CREATININE RATIO 16.8 (10-20); CALCIUM 8.7 mg/dl (8.5-10.1); CREATININE 1.3 mg/dl (0.60-1.20); MAGNESIUM 2.3 mg/dl (1.8-2.4); POTASSIUM 3.7 mmol/L (3.5-5.1)
[2016-06-16] MEDS: LISINOPRIL 2.5 MG TAB PO SCH (08:07)
[2016-06-16] MEDS: CARBIDOPA/LEVODOPA 25/100MG TAB PO SCH ×3 (08:07→20:52)
[2016-06-16] MEDS: RASAGILINE 0.5 MG TAB PO SCH (08:07)
[2016-06-16] MEDS: PANTOprazole SOD 40 MG TAB PO SCH (08:07)
[2016-06-16] MEDS: INSULIN ASPART 100 UNITS/ML 3 ML PEN SC SCH ×4 (08:26→21:06)
[2016-06-16] MEDS: HEPARIN SOD 5000 UNIT/0.5 ML CARP SQ SCH ×2 (08:26→21:07)
--- NOTE | 2016-06-16 11:01 | Progress Note ---
Medicine Progress Note Date & Time of Visit: Jun 16, 2016 at 10:51. Subjective 80 yoF with some improvement but still having loose watery stool. She reports 3 episodes in the last 24 hours She is tolerating reg diet at this point Also, her Urine culture is still pending She otherwise denies any symptoms at this time Plan to send to med-surg awaiting resolution of diarrhea and UCx results to finalize Objective Last 8 Hrs Date Time Temp Pulse Resp B/P Pulse Ox O2 Delivery O2 Flow Rate FiO2 06/16/16 08:00 Room Air 06/16/16 07:47 36.4 71 16 105/68 95 Room Air 06/16/16 04:00 96 Room Air 06/16/16 03:50 36.5 69 20 101/67 96 Room Air Physical Exam: GEN: WNWD, in no acute distress, alert and appropriate, in bedside chair HEENT: NC/AT, normal sclerae CARDIO: reg rate, S1/2 heard without m/g/r LUNGS: CTA bilaterally, no crackles, rales or wheezes, good diaphragmatic excursion ABD: +BS, soft, non-tender, non-distended, no rebound or guarding EXTREMITY: no LE swelling or edema, extremities are warm and well-perfused N/M: No gross focal deficits. SKIN: warm and dry Laboratory Results: Last 24 Hours Test 06/15/16 11:41 06/15/16 15:30 06/15/16 15:50 06/15/16 20:43 Bedside Glucose 218 mg/dl 352 mg/dl 191 mg/dl Test 06/16/16 06:33 06/16/16 06:49 White Blood Count 10.27 K/uL Red Blood Count 3.96 M/uL Hemoglobin 12.7 g/dL Hematocrit 37.7 % Mean Corpuscular Volume 95.2 fL Mean Corpuscular Hemoglobin 32.1 pg Mean Corpuscular Hemoglobin Concent 33.7 g/dl RDW Standard Deviation 47.6 fL RDW Coefficient of Variation 13.8 % Platelet Count 306 K/uL Mean Platelet Volume 10.6 fL Sodium Level 141 mmol/L Potassium Level 3.7 mmol/L Chloride Level 103 mmol/L Carbon Dioxide Level 27 mmol/L Anion Gap 11.0 mmol/L Blood Urea Nitrogen 22 mg/dl Creatinine 1.30 mg/dl Est Creatinine Clear Calc Drug Dose 36.3 ml/min Estimated GFR () 45.5 Estimated GFR (Non- 39.3 BUN/Creatinine Ratio 16.8 Random Glucose 119 mg/dl Calcium Level 8.7 mg/dl Magnesium Level 2.3 mg/dl Bedside Glucose 123 mg/dl Date/Time Source Procedure Growth Status 06/15/16 15:30 Stool C.difficile Toxin B Gene (PCR) - Final No C. difficile toxin B gene detected Complete 06/15/16 15:30 Stool Shiga Toxin Test Pending Received 06/15/16 15:30 Stool Stool Culture Pending Received Assessment & Plan 80 yo F with acute gastroenteritis that began two days ago. Acute Gastroenteritis Presented with nausea, vomiting, diarrhea, confusion.-->all have resolved except some watery diarrhea that has persisted Rectal temp in ED 34.9.-->afebrile since admission May have viral gastroenteritis or other process. Check stools for C diff and routine enteric pathogens-pending Ischemic bowel unlikely with normal lactate. Tachycardic as high as 110-->resolved today to normal rate WBC 13,000-->resolved -->overall improved, IVF stopped yesterday-->tolerating PO, cont to eat and drink to thirst -->still waiting on stool studies, will add norovirus as multiple family members have been sick with similar symptoms. BACTERIURIA Cath UA showed moderate leukocyte esterase, > 30 WBC's, 1+ bacteria. Urine cultures obtained. Has taken antibiotics for UTI's, but not in recent months. Received broad spectrum IV coverage with ceftriaxone in ED. Will change antibiotic therapy to piperacillin / tazobactam for broader coverage pending culture results. -->06/15: cont Zosyn for now until culture results return--GNB-awaiting speciation. With AMS prior to admission will treat this as a UTI ALTERED MENTAL STATUS Noted by family at home. Head CT negative. Probably encephalopathy secondary to infection. Improved in ED-->today is resolved HYPOMAGNESEMIA: 2/2 diarrhea, resolved CHRONIC DIASTOLIC CHF Compensated. Hold furosemide due to GI symptoms. Daily standing weights DM TYPE 2 Usually fairly well-controlled. Hold oral agents due to acute illness. Lantus + NovoLog per protocol. VTE PROPHYLAXIS Moderate risk for VTE. SQ heparin. Ambulate. RESUSCITATION STATUS Discussed with patient on admission She has a living will. She prefers a natural passing does not wish to have extraordinary measures, including CPR, attempted in the event of a cardiopulmonary arrest under any circumstances. Therefore, code status = "Level 5" (DNR). Chelle Becker DO [facility] Hospitalist Current Inpatient Medications: Current Inpatient Medications Medications (Trade) Dose Ordered Sig/Brian Route Start Time Stop Time Status Last Admin Dose Admin Acetaminophen (Tylenol Tab) 650 mg Q4H PRN PO 06/15/16 03:15 07/15/16 03:14 06/15/16 23:57 650 MG Ondansetron HCl (Zofran Inj) 4 mg Q6H PRN IV 06/15/16 03:15 07/15/16 03:14 Albuterol (Ventolin Hfa Inhaler) 2 puffs Q4 PRN INH 06/15/16 06:00 07/15/16 05:59 Carbidopa/Levodopa (Sinemet 25/ 100MG Tab) 1.5 tab TID PO 06/15/16 09:00 07/15/16 08:59 06/16/16 08:07 1.5 TAB Ipratropium [place] (Atrovent Hfa Inhaler) 2 puffs Q4 PRN INH 06/15/16 06:00 07/15/16 05:59 Lisinopril (Zestril Tab) 2.5 mg QAM PO 06/15/16 09:00 07/15/16 08:59 06/16/16 08:07 2.5 MG Simvastatin (Zocor Tab) 20 mg HS PO 06/15/16 21:00 07/15/16 20:59 06/15/16 20:51 20 MG Pantoprazole Sodium (Protonix Tab) 40 mg QAM PO 06/15/16 09:00 07/15/16 08:59 06/16/16 08:07 40 MG Rasagiline (Azilect) 1 mg DAILY PO 06/15/16 09:00 07/15/16 08:59 06/16/16 08:07 1 MG Insulin Glargine (Lantus Solostar Pen) 12 unit HS SC 06/15/16 21:00 07/15/16 20:59 06/15/16 20:59 12 UNIT Insulin Aspart (novoLOG ASPART) SLIDING SCAL... ACHS SC 06/15/16 07:00 07/15/16 06:59 06/16/16 08:26 1 UNITS Heparin Sodium (Porcine) 5000 unit 5,000 unit Q12 SQ 06/15/16 09:00 07/15/16 08:59 06/16/16 08:26 5,000 UNIT Piperacillin Sod/ Tazobactam Sod/ Dextrose (Zosyn Iv/D5 100ml) 120 ml @ 30 mls/hr Q8H IV 06/15/16 10:00 06/20/16 09:59 06/16/16 09:55 30 MLS/HR Piperacillin Sod/ Tazobactam Sod (Consult) 1 ea UD PRN N/A 06/15/16 06:30 07/15/16 06:29
[2016-06-16] MEDS: SIMVASTATIN 20 MG TAB PO SCH (20:53)
[2016-06-16] MEDS: INSULIN GLARGINE SOLOSTAR 100 UNITS/ML 3 ML PEN SC SCH (21:07)
[2016-06-17] MEDS: PIPERACILL/TAZOBAC IV 4.5 GM in DEXTROSE 5% 100ML IV SCH (02:03)
[2016-06-17] MEDS: ACETAMINOPHEN 325 MG TAB PO PRN (02:05)
[2016-06-17 06:11] LABS: HEMATOCRIT 35.1 % (37-47); MEAN CELL VOLUME 94.1 fL (80-100); MEAN CORPUSCULAR HEMOGLOBIN 31.4 pg (25-34); MEAN CORPUSCULAR HGB CONC 33.3 g/dl (32-36); MEAN PLATELET VOLUME 10.7 fL (7.4-10.4); PLATELET COUNT 302 K/uL (130-400); RED BLOOD COUNT 3.73 M/uL (4.2-5.4); WHITE BLOOD COUNT 8.17 K/uL (4.8-10.8)
[2016-06-17 06:25] LABS: CALCIUM 8.5 mg/dl (8.5-10.1); CREATININE 1.3 mg/dl (0.60-1.20); POTASSIUM 3.9 mmol/L (3.5-5.1)
[2016-06-17 08:11] VITALS: BP 120/82; PULSE 82; TEMP 36.6; O2SAT 95
[2016-06-17] MEDS: CARBIDOPA/LEVODOPA 25/100MG TAB PO SCH (08:24)
[2016-06-17] MEDS: PANTOprazole SOD 40 MG TAB PO SCH (08:24)
[2016-06-17] MEDS: RASAGILINE 0.5 MG TAB PO SCH (08:24)
[2016-06-17] MEDS: LISINOPRIL 2.5 MG TAB PO SCH (08:24)
[2016-06-17] MEDS: HEPARIN SOD 5000 UNIT/0.5 ML CARP SQ SCH (08:26)
[2016-06-17] MEDS: INSULIN ASPART 100 UNITS/ML 3 ML PEN SC SCH ×2 (08:26→12:23)
[2016-06-17] MEDS ORDERED: CIPROFLOXACIN 500 MG TAB PO SCH (10:00)
[2016-06-17] MEDS ORDERED: SULF800T23 PO (11:39)
--- NOTE | 2016-06-17 11:50 | Discharge Instructions ---
Discharge Instructions Admission Reason for Admission: Ams, Possible Sepsis Discharge Discharge Diagnosis / Problem: Altered Mental Status-resolved, Acute Gastroenteritis, Acute cystitis Discharge Goals Goal(s): Prevent Disease Progression Activity Recommendations Activity Limitations: resume your previous activity . Instructions / Follow-Up Instructions / Follow-Up Please take all medications as instructed. You have an appointment with Dr. Petersen on 06/21 at 1250 for follow-up of this hospitalization. Please bring all paperwork with you to this appointment. It was a pleasure taking care of you! Call if you have any questions or problems. You can reach a [facility] hospitalist on duty at [facility] 24 hours a day by calling [phone]. Take care of yourself. Chelle Becker DO [facility] Hospitalist Current Hospital Diet Patient's current hospital diet: Regular Diet, Diabetes Type 2 Diet Discharge Diet Recommended Diet: Diabetes Type 2 Diet Pending Studies Studies pending at discharge: yes List of pending studies: Norovirus Final blood and stool cultures also pending at discharge Laboratory Results Hemoglobin A1c Test 06/15/16 06:26 Range/Units Estimated Average Glucose 183 mg/dl Hemoglobin A1c 8.0 H 4.5-5.6 % Medical Emergencies . Who to Call and When: Medical Emergencies: If at any time you feel your situation is an emergency, please call 911 immediately. . Non-Emergent Contact Non-Emergency issues call your: Primary Care Provider . . "Provider Documentation" section prepared by Chelle Becker. VTE Core Measure Inpt VTE Proph given/why not?: Unfractionated heparin SQ
[2016-06-17 11:59] VITALS: BP 120/82; PULSE 82; TEMP 36.6; O2SAT 95
[2016-06-17 12:59] VITALS: Ht 154.9 cm; Wt 90.1 kg
[2016-06-17] MEDS ORDERED: SULFAMETHOXAZOLE/TRIMETHOPRIM DS 800/160MG TAB PO SCH (21:00)
--- NOTE | 2016-06-23 10:01 | Discharge Summary ---
Discharge Summary Admission Date: Jun 15, 2016 at 03:17 Discharge Date: Jun 17, 2016 Principal Diagnosis: Acute gastroenteritis UTI 2/2 Klebsiella oxytoca AMS-resolved Hypomagesemia-replaced Chronic diastolic CHF DMII Procedures: None. Vaccinations: None. Consultations: None. Pending Studies/Follow-Up: See instructions below Medication Reconciliation Continued Medications: Acetaminophen (Tylenol Arthritis Ext Rel) 650 Mg Tab 650-1300 MG PO BID PRN for Pain Albuterol Hfa (Ventolin Hfa) 200 Puffs/07416 Mcg Aers 2 PUFFS INH Q4 PRN for SOB/Wheezing Carbidopa/Levodopa (Sinemet 25MG/100MG) Tab 1.5 TAB PO TID, TAB Furosemide (Lasix) 20 Mg Tab 20 MG PO DAILY, TAB Hydrocodone/Acetaminophen 5MG/325MG ([place] 5MG/325MG) Tab 1 TABLET PO Q6 PRN for Pain PRN PAIN Insulin Aspart (Novolog Flexpen) 100 Units/Ml Inj 7 UNITS SQ AC Insulin Glargine (Lantus Solostar) 100 Unit/Ml Inj 12 UNITS SC HS Ipratropium [place] (Atrovent Hfa) 200 Puffs/3400 Mcg Aers 2 PUFFS INH Q4 PRN for SOB/Wheezing, 3 Refills Lidocaine (Lidoderm Patch 5%) 1 Ea Tdsy 1-2 PATCH TD DAILY PRN for Pain Lisinopril (Lisinopril) 2.5 Mg Tab 2.5 MG PO QAM Loratadine (Claritin) 10 Mg Tab 10 MG PO DAILY PRN for ALLERGIC REACTION, TAB Metformin Hcl (Glucophage) 500 Mg Tab 500 MG PO BID, TAB Multiple Vitamins W/ Minerals (Multivitamin Adults 50+) 1 Tab Tab 1 TAB PO DAILY Omeprazole (Prilosec) 20 Mg Capcr 20 MG PO QAM, CAP Rasagiline Mesylate (Azilect) 1 Mg Tab 1 MG PO QAM, TAB Simvastatin (Zocor) 20 Mg Tab 20 MG PO HS, 0 Refills Admission Information HPI (per Admitting provider): 80 YO female followed by Dr. Petersen. History of diastolic CHF, DM, and other problems noted below. She was in her usual state of health until this evening when she developed loose stools followed by nausea and vomiting. No associated abdominal pain. No melena or hematochezia. No fever, but she had some chills and sweats. No dysuria or hematuria. Family noted that she was confused. Brought to ED for evaluation. . Physical Exam (per Admitting): General Appearance: WD/WN, no apparent distress, + obese Head: normocephalic, atraumatic Eyes: normal inspection, PERRL, EOMI, sclerae normal (conjunctivae pink) ENT: normal ENT inspection, hearing grossly normal, pharynx normal, + pertinent finding (endentulous) Neck: supple, no adenopathy, thyroid normal, no JVD, trachea midline Respiratory/Chest: lungs clear, no respiratory distress, no accessory muscle use Cardiovascular: regular rate, rhythm, no edema, no gallop, no JVD, no murmur , + pertinent finding (chronic-appearing lymphedema bilateral lower extremities) Abdomen/GI: non tender, soft, no organomegaly, no pulsatile mass, + pertinent finding (quiet bowel sounds) Back: no CVA tenderness Extremities/Musculoskelatal: no calf tenderness, normal capillary refill, + pedal edema, + pertinent finding (no diabetic foot lesions) 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 Acute Gastroenteritis Presented with nausea, vomiting, diarrhea, confusion.-->all have resolved except some watery diarrhea that has persisted-->this resolved prior to discharge Rectal temp in ED 34.9.-->afebrile since admission May have viral gastroenteritis or other process. Check stools for C diff and routine enteric pathogens-negative Norovirus RNA pending at d/c Ischemic bowel unlikely with normal lactate. Tachycardic as high as 110-->resolved to normal rate WBC 13,000-->resolved -->overall improved, IVF stopped-->tolerating PO, cont to eat and drink to thirst -->still waiting on stool studies, will add norovirus as multiple family members have been sick with similar symptoms.-->negative and as above BACTERIURIA Cath UA showed moderate leukocyte esterase, > 30 WBC's, 1+ bacteria. Urine cultures obtained. Has taken antibiotics for UTI's, but not in recent months. Received broad spectrum IV coverage with ceftriaxone in ED. Will change antibiotic therapy to piperacillin / tazobactam for broader coverage pending culture results. -->06/15: cont Zosyn for now until culture results return-->Klebsiella Oxytoca -->she had received 3-4 days of empiric broad-spectrum abx including Zosyn and Rocephin , and given an additional 3 days of Bactrim at discharge ALTERED MENTAL STATUS Noted by family at home. Head CT negative. Probably encephalopathy secondary to infection. Improved in ED-->resolved shortly after admission and no other issues with this HYPOMAGNESEMIA: 2/2 diarrhea, resolved CHRONIC DIASTOLIC CHF Compensated. Hold furosemide due to GI symptoms-restarted at discharge Daily standing weights DM TYPE 2 Usually fairly well-controlled. Hold oral agents due to acute illness. Lantus + NovoLog per protocol. On day of discharge she was afebrile and hemodynamically stable. She was ambulating at baseline and mentating at baseline, also. She was eager to go home with family. Physical exam was unremarkable and all symptoms present on admission had resolved. She was discharged to home in good condition with close follow-up with PCP. Total time spent on discharge = 60 minutes This includes examination of the patient, discharge planning, medication reconciliation, and communication with other providers. Discharge Instructions Discharge Instructions Admission Reason for Admission: Ams, Possible Sepsis Discharge Discharge Diagnosis / Problem: Altered Mental Status-resolved, Acute Gastroenteritis, Acute cystitis Discharge Goals Goal(s): Prevent Disease Progression Activity Recommendations Activity Limitations: resume your previous activity . Instructions / Follow-Up Instructions / Follow-Up Please take all medications as instructed. You have an appointment with Dr. Petersen on 06/21 at 1250 for follow-up of this hospitalization. Please bring all paperwork with you to this appointment. It was a pleasure taking care of you! Call if you have any questions or problems. You can reach a [facility] hospitalist on duty at [facility] 24 hours a day by calling [phone]. Take care of yourself. Chelle Becker, DO [facility] Hospitalist Additional Copies To Tsering Petersen M.D.
== END 2016-06-17 13:30 | disposition home or self-care (01) | DRG 391 ==
LOC: ENRESERVDT → ENRESERVTM → EDBD 22:45 → C.EDB 22:46 → C.2T 06-15 03:17 → EEVIPCON 06-15 03:17 → C.MED 06-16 11:56
PROVIDERS: ADMIT Hospitalist; ATTEND Hospitalist
DX: A08.4 Viral intestinal infection, unspecified (principal); G93.40 Encephalopathy, unspecified; N39.0 Urinary tract infection, site not specified; I50.32 Chronic diastolic (congestive) heart failure; B96.1 Klebsiella pneumoniae [K. pneumoniae] as the cause of diseases classified elsewhere; R41.82 Altered mental status, unspecified; E83.42 Hypomagnesemia; E11.9 Type 2 diabetes mellitus without complications; Z66 Do not resuscitate; Z98.1 Arthrodesis status; Z87.891 Personal history of nicotine dependence; Z79.4 Long term (current) use of insulin; Z79.84 Long term (current) use of oral hypoglycemic drugs; Z79.891 Long term (current) use of opiate analgesic; Z79.899 Other long term (current) drug therapy

== ENCOUNTER 2016-10-11 21:55 | Emergency (ER) | payer OTHER ==
[~2016-10-11] VITALS: Ht 154.9 cm; Wt 87.6 kg
[~2016-10-11 21:55] MED LIST changes: -ALBUAER9 INH; +ATRIN INH; -CALC500C70 PO; -CEFU1TAB33 PO; -CITA20TA9 PO; +GLC/500 PO; -GLC500 PO; +HYDR-5688 PO; -IPRA17AE2 INH; -LIDO5DIS10 TD; +LISI2.5T5 PO; +MULT-916 PO; -MULTTAB58 PO; +NF656 TD; +NVLGI/PEN SQ; -NVLGI/PEN SQ.; +RASA1TAB PO; +VNTHFA/IN INH; -[UNRECOGNIZED DRUG - CODE] PO
[2016-10-11 22:08] VITALS: TEMP 36.4; Ht 154.9 cm; Wt 87.6 kg
--- NOTE | 2016-10-11 22:59 | EMERGENCY ROOM VISIT NOTE ---
History First contact with patient: 22:22 Chief Complaint: HYPOGLYCEMIA Stated Complaint: low bsg, change in mental status Nursing Triage Summary: pt brought to main ED by ALS services from home where she lives with her granddaughter. ALS reports pt has hx DM 2 and uses novolog and lantus as well as metformin. pt being treated for urinary infection since friday with home health nurse as well as thrush. pt taking liquid nystatin for thrush. pt reports that medication makes her nauseaous and pt vomitied after eating dinner tonight. EMS reports pt's BSG was 54 upon arrival, iv initiated and 12.5g dextrose given, follow up BSG was 118. reports initial BP was 80/60 and fluids were hung. ALS reports pt is "much better" now, alert and oriented x4 and breathing WNL. pt denies complaints at this time. denies n/v, sob, pain. pt alert and oriented x4. breathing regularly and independently. History of Present Illness The patient is a 81 year old female who presents to the Emergency Room with complaints of hypoglycemia. The patient was at home this evening and is currently taking Nystatin swish and swallow for oral thrush. Tonight was her first dose, and after taking the medication she took her blood sugar that showed a glucose in the 200's. She took 7 units of NovoLog and then tried to eat dinner. She felt nauseous, which she attributes to the Nystatin, and vomited her dinner. She was then found to have a glucose in the 50's. She says when she becomes hypoglycemic she gets blackouts that come and go, but denies any falls or loss of consciousness. She is also being treated for a UTI, and has been on antibiotic therapy since Friday. She denies any headaches, changes in vision, chest pain, abdominal pain, fever, or chills. Review of Systems See HPI for pertinent positives and negatives. A total of ten systems were reviewed and were otherwise negative. Past Medical/Surgical History Medical Problems: (1) Altered mental status (2) BPPV (benign paroxysmal positional vertigo) (3) Chronic diastolic CHF (congestive heart failure) (4) CKD (chronic kidney disease), stage III (5) COPD, mild (6) Depression (7) DM type 2 (diabetes mellitus, type 2) (8) Dyslipidemia (9) Gastroparesis (10) GERD (gastroesophageal reflux disease) (11) IBS (irritable bowel syndrome) (12) Lateral malleolar fracture (13) Left ulnar fracture (14) Osteoarthritis (15) Osteoporosis (16) Parkinson disease (17) possible sepsis (18) PVD (peripheral vascular disease) (19) Spinal stenosis Surgical Problems: (1) H/O spinal fusion (2) H/O tooth extraction (3) H/O tubal ligation (4) History of cataract surgery (5) History of cataract surgery (6) S/P cholecystectomy Family History Diabetes mellitus FH: cancer Social History Smoking Status: Former Smoker Alcohol Use: none Drug Use: none Marital Status: Housing Status: lives alone Occupation Status: retired Current/Historical Medications Scheduled Carbidopa/Levodopa (Sinemet 25MG/100MG), 1.5 TAB PO TID Furosemide (Lasix), 20 MG PO DAILY Insulin Aspart (Novolog Flexpen), 7 UNITS SQ AC Insulin Glargine (Lantus Solostar), 12 UNITS SC HS Lisinopril (Lisinopril), 2.5 MG PO QAM Metformin Hcl (Glucophage), 500 MG PO BIDM Multiple Vitamins W/ Minerals (Multivitamin Adults 50+), 1 TAB PO DAILY Nystatin (Nystatin Suspension), 5 ML PO QID Omeprazole (Prilosec), 20 MG PO QAM Rasagiline Mesylate (Azilect), 1 MG PO QAM Simvastatin (Zocor), 20 MG PO HS Sulfamethoxazole-Trimethoprim (Smz-Tmp Ds), 1 TAB PO BID Scheduled PRN Acetaminophen (Tylenol Arthritis Ext Rel), 650-1,300 MG PO BID PRN for Pain Albuterol Hfa (Ventolin Hfa), 2 PUFFS INH Q4 PRN for SOB/Wheezing Hydrocodone/Acetaminophen 5MG/325MG ([place] 5MG/325MG), 1 TABLET PO Q6 PRN for Pain Ipratropium [place] (Atrovent Hfa), 2 PUFFS INH Q4 PRN for SOB/Wheezing Loratadine (Claritin), 10 MG PO DAILY PRN for ALLERGIC REACTION Allergies Coded Allergies: Anesthetics, Amide (Verified Allergy, Unknown, UNKNOWN, 10/11/16) Celecoxib (Verified Allergy, Unknown, edema, 10/11/16) Pramipexole (Verified Allergy, Unknown, vomited, 10/11/16) Uncoded Allergies: TERRAMYCIN (Adverse Reaction, Intermediate, VOMITING, 10/06/15) Physical Exam Vital Signs Date Time Temp Pulse Resp B/P Pulse Ox O2 Delivery O2 Flow Rate FiO2 10/12/16 00:45 89 18 94/76 97 Room Air 10/11/16 23:34 84 18 110/64 97 Room Air 10/11/16 22:11 90 10/11/16 22:08 36.4 95 18 100/45 95 Room Air Physical Exam GENERAL: Awake, alert, well-appearing, in no distress HENT: Normocephalic, atraumatic. Thrush over posterior tongue. Erythema over superior and inferior lip. EYES: Normal conjunctiva. Sclera non-icteric. NECK: Supple. Trachea midline RESPIRATORY: Clear to auscultation. CARDIAC: Regular rate, normal rhythm. Extremities warm and well perfused. Pulses equal. ABDOMEN: Soft, non-distended. No tenderness to palpation. No rebound or guarding. No masses. RECTAL: Deferred. MUSCULOSKELETAL: Chest examination reveals no tenderness. The back is symmetrical on inspection without obvious abnormality. There is no CVA tenderness to palpation. No joint edema. LOWER EXTREMITIES: Calves are equal size bilaterally and non-tender. No edema. No discoloration. NEURO: Normal sensorium. No sensory or motor deficits noted. SKIN: No rash or jaundice noted. Medical Decision & Procedures Laboratory Results 10/11/16 23:48 Red Blood Count 4.20, Mean Corpuscular Volume 95.2, Mean Corpuscular Hemoglobin 31.0, Mean Corpuscular Hemoglobin Concent 32.5, Mean Platelet Volume 10.0, Neutrophils (%) (Auto) 79.9, Lymphocytes (%) (Auto) 10.0, Monocytes (%) (Auto) 9.0, Eosinophils (%) (Auto) 0.5, Basophils (%) (Auto) 0.2, Neutrophils # (Auto) 11.14, Lymphocytes # (Auto) 1.39, Monocytes # (Auto) 1.26, Eosinophils # (Auto) 0.07, Basophils # (Auto) 0.03 10/11/16 23:48 Test 10/11/16 23:48 10/12/16 00:00 10/12/16 00:26 White Blood Count 13.95 K/uL (4.8-10.8) Red Blood Count 4.20 M/uL (4.2-5.4) Hemoglobin 13.0 g/dL (12.0-16.0) Hematocrit 40.0 % (37-47) Mean Corpuscular Volume 95.2 fL (80-100) Mean Corpuscular Hemoglobin 31.0 pg (25-34) Mean Corpuscular Hemoglobin Concent 32.5 g/dl (32-36) Platelet Count 309 K/uL (130-400) Mean Platelet Volume 10.0 fL (7.4-10.4) Neutrophils (%) (Auto) 79.9 % Lymphocytes (%) (Auto) 10.0 % Monocytes (%) (Auto) 9.0 % Eosinophils (%) (Auto) 0.5 % Basophils (%) (Auto) 0.2 % Neutrophils # (Auto) 11.14 K/uL (1.4-6.5) Lymphocytes # (Auto) 1.39 K/uL (1.2-3.4) Monocytes # (Auto) 1.26 K/uL (0.11-0.59) Eosinophils # (Auto) 0.07 K/uL (0-0.5) Basophils # (Auto) 0.03 K/uL (0-0.2) RDW Standard Deviation 47.0 fL (36.4-46.3) RDW Coefficient of Variation 13.6 % (11.5-14.5) Immature Granulocyte % (Auto) 0.4 % Immature Granulocyte # (Auto) 0.06 K/uL (0.00-0.02) Anion Gap 8.0 mmol/L (3-11) Est Creatinine Clear Calc Drug Dose 25.5 ml/min Estimated GFR () 30.5 Estimated GFR (Non- 26.3 BUN/Creatinine Ratio 13.1 (10-20) Calcium Level 8.8 mg/dl (8.5-10.1) Bedside Glucose 72 mg/dl (70-90) Urine Color YELLOW Urine Appearance TURBID (CLEAR) Urine pH 5.0 (4.5-7.5) Urine Specific [place] 1.027 (1.000-1.030) Urine Protein TRACE (NEG) Urine Glucose (UA) NEG (NEG) Urine Ketones TRACE (NEG) Urine Occult Blood TRACE (NEG) Urine Nitrite NEG (NEG) Urine Bilirubin NEG (NEG) Urine Urobilinogen NEG (NEG) Urine Leukocyte Esterase LARGE (NEG) Urine WBC (Auto) >30 /hpf (0-5) Urine RBC (Auto) 5-10 /hpf (0-4) Urine Hyaline Casts (Auto) 1-5 /lpf (0-5) Urine Epithelial Cells (Auto) >30 /lpf (0-5) Urine Bacteria (Auto) 4+ (NEG) Medications Administered Medications (Trade) Dose Ordered Sig/Brian Route Start Time Stop Time Status Last Admin Dose Admin Sodium Chloride (Nss 1000ml) 1,000 ml @ 999 mls/hr Q1H1M ONCE IV 10/12/16 00:45 10/12/16 01:45 10/12/16 00:45 999 MLS/HR Ciprofloxacin (Cipro Tab) 500 mg DAILY ONCE PO 10/12/16 01:15 10/12/16 01:16 DC 10/12/16 01:37 500 MG Fluconazole (Diflucan Tab) 100 mg ONE ONCE PO 10/12/16 01:15 10/12/16 01:16 DC 10/12/16 01:37 100 MG Medical Decision Patient is a 81 year old female that presents with hypoglycemia - On arrival patient ingested 4 oz of orange juice - Sugar rechecked and remains in the 50s - Labs Ordered: CBC, BMP, Urinalysis, Urine Culture - Patient able to eat, and after having dinner patient sugars improved to wnl - CBC revealed leukocytosis and subsequent UA revealed continued UTI - Patient given dose of Ciprofloxacin in ED and will continue 2 more days as outpatient for 3 day course - 1 dose of 100mg oral fluconazole given in ED for oral thrush, will continue for 14 day total course - Creatinine of 1.8 revealed acute kidney injury possibly secondary to hypoglycemia and infection, given 1L of fluid in the ED, continue with antibiotic treatment as outpatient Impression Primary Impression: Hypoglycemia Additional Impression: Urinary tract infection Departure Information Dispostion Home / Self-Care Condition GOOD Prescriptions Fluconazole (DIFLUCAN) 100 Mg Tab 1 TAB PO DAILY for 14 Days, #14 TAB Prov: Roshan Hernadez MD 10/12/16 Ciprofloxacin Hcl (CIPRO) 500 Mg Tab 500 MG PO DAILY for 2 Days, #2 TAB Prov: Roshan Hernadez MD 10/12/16 Referrals Tsering Petersen M.D. (PCP) Patient Instructions My [facility] Problem Qualifiers Additional Impression: Urinary tract infection Urinary tract infection type: site unspecified Hematuria presence: without hematuria Qualified Codes: N39.0 - Urinary tract infection, site not specified
[2016-10-11] MEDS ORDERED: SULF-183 PO (23:40)
[2016-10-11] MEDS ORDERED: NYSS/ PO (23:44)
[2016-10-11 23:56] LABS: BASO % 0.2 %; BASO ABS # 0.03 K/uL (0-0.2); COMPLETE YES; EOS % 0.5 %; IG% 0.4 %; LYMPH ABS # 1.39 K/uL (1.2-3.4); MEAN CELL VOLUME 95.2 fL (80-100); MEAN CORPUSCULAR HGB CONC 32.5 g/dl (32-36); NEUT % 79.9 %; PLATELET COUNT 309 K/uL (130-400); WHITE BLOOD COUNT 13.95 K/uL (4.8-10.8)
[2016-10-12 00:30] LABS: BUN/CREATININE RATIO 13.1 (10-20); CALCIUM 8.8 mg/dl (8.5-10.1); CREATININE 1.8 mg/dl (0.60-1.20)
[2016-10-12 00:43] LABS: POTASSIUM 4.1 mmol/L (3.5-5.1)
[2016-10-12] MEDS ORDERED: SODIUM CHLORIDE 0.9% 1000ML 1,000 ML IV ONE (00:45)
[2016-10-12 00:47] LABS: URINE APPEARANCE TURBID (CLEAR); URINE BILIRUBIN NEG (NEG); URINE COLOR YELLOW; URINE EPITHELIAL CELL AUTO >30 /lpf (0-5); URINE NITRITE NEG (NEG); URINE SPECIFIC GRAVITY 1.027 (1.000-1.030); UROBILINOGEN NEG (NEG)
[2016-10-12 00:49] LABS: MANUAL MICROSCOPIC REQUIRED? NO; REVIEW REQ? NO
[2016-10-12] MEDS ORDERED: CIPROFLOXACIN 500 MG TAB PO ONE (01:15)
[2016-10-12] MEDS ORDERED: FLUCONAZOLE 100 MG TAB PO ONE (01:15)
[2016-10-12] MEDS ORDERED: FLUC100T4 PO (01:53)
[2016-10-12] MEDS ORDERED: CIPR1TAB10 PO (01:53)
--- NOTE | 2016-10-12 02:16 | EMERGENCY ROOM VISIT NOTE ---
History Report prepared by Maged: Domingo Mortensen Under the Supervision of: Dr. Nestor Langford M.D. First contact with patient: 22:22 Chief Complaint: HYPOGLYCEMIA Stated Complaint: low bsg, change in mental status Nursing Triage Summary: pt brought to main ED by ALS services from home where she lives with her granddaughter. ALS reports pt has hx DM 2 and uses novolog and lantus as well as metformin. pt being treated for urinary infection since friday with home health nurse as well as thrush. pt taking liquid nystatin for thrush. pt reports that medication makes her nauseaous and pt vomitied after eating dinner tonight. EMS reports pt's BSG was 54 upon arrival, iv initiated and 12.5g dextrose given, follow up BSG was 118. reports initial BP was 80/60 and fluids were hung. ALS reports pt is "much better" now, alert and oriented x4 and breathing WNL. pt denies complaints at this time. denies n/v, sob, pain. pt alert and oriented x4. breathing regularly and independently. History of Present Illness The patient is a 81 year old female who presents to the Emergency Room by EMS with complaints of a constant hypoglycemic state beginning a few hours ago. She has a history of type II diabetes, and uses Novolog and Lantus as well as Metformin. She states that she has been experiencing brief periods of blacking out, which is typical when her blood sugar is low. The patient notes that she did not have much to eat today. She was started on antibiotics four days ago for a UTI, and was started on oral Nystatin today for thrush. She states that she vomited today after taking the oral Nystatin. The patient denies any headache, chest pain, or abdominal pain. Source of History: patient Onset: A few hours ago Quality: other (hypoglycemia) Timing: constant Associated Symptoms: + vomiting, No abdominal pain, No chest pain, No headache Review of Systems See HPI for pertinent positives & negatives. A total of 10 systems reviewed and were otherwise negative. Past Medical & Surgical Medical Problems: (1) Altered mental status (2) BPPV (benign paroxysmal positional vertigo) (3) Chronic diastolic CHF (congestive heart failure) (4) CKD (chronic kidney disease), stage III (5) COPD, mild (6) Depression (7) DM type 2 (diabetes mellitus, type 2) (8) Dyslipidemia (9) Gastroparesis (10) GERD (gastroesophageal reflux disease) (11) IBS (irritable bowel syndrome) (12) Lateral malleolar fracture (13) Left ulnar fracture (14) Osteoarthritis (15) Osteoporosis (16) Parkinson disease (17) possible sepsis (18) PVD (peripheral vascular disease) (19) Spinal stenosis Surgical Problems: (1) H/O spinal fusion (2) H/O tooth extraction (3) H/O tubal ligation (4) History of cataract surgery (5) History of cataract surgery (6) S/P cholecystectomy Family History Diabetes mellitus FH: cancer Social History Smoking Status: Former Smoker Alcohol Use: none Drug Use: none Marital Status: Housing Status: lives alone Occupation Status: retired Current/Historical Medications Scheduled Carbidopa/Levodopa (Sinemet 25MG/100MG), 1.5 TAB PO TID Ciprofloxacin Hcl (Cipro), 500 MG PO DAILY Fluconazole (Diflucan), 1 TAB PO DAILY Furosemide (Lasix), 20 MG PO DAILY Insulin Aspart (Novolog Flexpen), 7 UNITS SQ AC Insulin Glargine (Lantus Solostar), 12 UNITS SC HS Lisinopril (Lisinopril), 2.5 MG PO QAM Metformin Hcl (Glucophage), 500 MG PO BIDM Multiple Vitamins W/ Minerals (Multivitamin Adults 50+), 1 TAB PO DAILY Nystatin (Nystatin Suspension), 5 ML PO QID Omeprazole (Prilosec), 20 MG PO QAM Rasagiline Mesylate (Azilect), 1 MG PO QAM Simvastatin (Zocor), 20 MG PO HS Sulfamethoxazole-Trimethoprim (Smz-Tmp Ds), 1 TAB PO BID Scheduled PRN Acetaminophen (Tylenol Arthritis Ext Rel), 650-1,300 MG PO BID PRN for Pain Albuterol Hfa (Ventolin Hfa), 2 PUFFS INH Q4 PRN for SOB/Wheezing Hydrocodone/Acetaminophen 5MG/325MG ([place] 5MG/325MG), 1 TABLET PO Q6 PRN for Pain Ipratropium [place] (Atrovent Hfa), 2 PUFFS INH Q4 PRN for SOB/Wheezing Loratadine (Claritin), 10 MG PO DAILY PRN for ALLERGIC REACTION Allergies Coded Allergies: Anesthetics, Amide (Verified Allergy, Unknown, UNKNOWN, 10/11/16) Celecoxib (Verified Allergy, Unknown, edema, 10/11/16) Pramipexole (Verified Allergy, Unknown, vomited, 10/11/16) Uncoded Allergies: TERRAMYCIN (Adverse Reaction, Intermediate, VOMITING, 10/06/15) Physical Exam Vital Signs Date Time Temp Pulse Resp B/P Pulse Ox O2 Delivery O2 Flow Rate FiO2 10/12/16 02:13 83 18 117/53 97 Room Air 10/12/16 00:45 89 18 94/76 97 Room Air 10/11/16 23:34 84 18 110/64 97 Room Air 10/11/16 22:11 90 10/11/16 22:08 36.4 95 18 100/45 95 Room Air Physical Exam GENERAL: Patient is a healthy-appearing well-nourished female HEAD: Normocephalic atraumatic EYES: Ocular movements intact pupils equal and react to light OROPHARYNX mucous membranes are moist no exudates present no erythema or edema present NECK: Supple no nuchal rigidity CHEST: Good equal expansion LUNGS: Clear and equal to auscultation CARDIAC: Normal S1 and S2 ABDOMEN: Soft nontender no guarding BACK: No CVA tenderness EXTREMITIES: No pain upon palpation normal muscle strength in all groups no clubbing cyanosis or edema NEURO: Patient is following commands is answering questions appropriately. Alert and oriented x3 Cranial Nerves 2-12 grossly intact Medical Decision & Procedures Laboratory Results 10/11/16 23:48 Red Blood Count 4.20, Mean Corpuscular Volume 95.2, Mean Corpuscular Hemoglobin 31.0, Mean Corpuscular Hemoglobin Concent 32.5, Mean Platelet Volume 10.0, Neutrophils (%) (Auto) 79.9, Lymphocytes (%) (Auto) 10.0, Monocytes (%) (Auto) 9.0, Eosinophils (%) (Auto) 0.5, Basophils (%) (Auto) 0.2, Neutrophils # (Auto) 11.14, Lymphocytes # (Auto) 1.39, Monocytes # (Auto) 1.26, Eosinophils # (Auto) 0.07, Basophils # (Auto) 0.03 10/11/16 23:48 Test 10/11/16 23:48 10/12/16 00:00 10/12/16 00:26 White Blood Count 13.95 K/uL (4.8-10.8) Red Blood Count 4.20 M/uL (4.2-5.4) Hemoglobin 13.0 g/dL (12.0-16.0) Hematocrit 40.0 % (37-47) Mean Corpuscular Volume 95.2 fL (80-100) Mean Corpuscular Hemoglobin 31.0 pg (25-34) Mean Corpuscular Hemoglobin Concent 32.5 g/dl (32-36) Platelet Count 309 K/uL (130-400) Mean Platelet Volume 10.0 fL (7.4-10.4) Neutrophils (%) (Auto) 79.9 % Lymphocytes (%) (Auto) 10.0 % Monocytes (%) (Auto) 9.0 % Eosinophils (%) (Auto) 0.5 % Basophils (%) (Auto) 0.2 % Neutrophils # (Auto) 11.14 K/uL (1.4-6.5) Lymphocytes # (Auto) 1.39 K/uL (1.2-3.4) Monocytes # (Auto) 1.26 K/uL (0.11-0.59) Eosinophils # (Auto) 0.07 K/uL (0-0.5) Basophils # (Auto) 0.03 K/uL (0-0.2) RDW Standard Deviation 47.0 fL (36.4-46.3) RDW Coefficient of Variation 13.6 % (11.5-14.5) Immature Granulocyte % (Auto) 0.4 % Immature Granulocyte # (Auto) 0.06 K/uL (0.00-0.02) Anion Gap 8.0 mmol/L (3-11) Est Creatinine Clear Calc Drug Dose 25.5 ml/min Estimated GFR () 30.5 Estimated GFR (Non- 26.3 BUN/Creatinine Ratio 13.1 (10-20) Calcium Level 8.8 mg/dl (8.5-10.1) Bedside Glucose 72 mg/dl (70-90) Urine Color YELLOW Urine Appearance TURBID (CLEAR) Urine pH 5.0 (4.5-7.5) Urine Specific [place] 1.027 (1.000-1.030) Urine Protein TRACE (NEG) Urine Glucose (UA) NEG (NEG) Urine Ketones TRACE (NEG) Urine Occult Blood TRACE (NEG) Urine Nitrite NEG (NEG) Urine Bilirubin NEG (NEG) Urine Urobilinogen NEG (NEG) Urine Leukocyte Esterase LARGE (NEG) Urine WBC (Auto) >30 /hpf (0-5) Urine RBC (Auto) 5-10 /hpf (0-4) Urine Hyaline Casts (Auto) 1-5 /lpf (0-5) Urine Epithelial Cells (Auto) >30 /lpf (0-5) Urine Bacteria (Auto) 4+ (NEG) Labs reviewed by ED physician. Medications Administered Medications (Trade) Dose Ordered Sig/Brian Route Start Time Stop Time Status Last Admin Dose Admin Sodium Chloride (Nss 1000ml) 1,000 ml @ 999 mls/hr Q1H1M ONCE IV 10/12/16 00:45 10/12/16 01:45 DC 10/12/16 00:45 999 MLS/HR Ciprofloxacin (Cipro Tab) 500 mg DAILY ONCE PO 10/12/16 01:15 10/12/16 01:16 DC 10/12/16 01:37 500 MG Fluconazole (Diflucan Tab) 100 mg ONE ONCE PO 10/12/16 01:15 10/12/16 01:16 DC 10/12/16 01:37 100 MG ED Course 2245: Past medical records reviewed. The patient was evaluated in room A2. A complete history and physical examination was performed. Medical Decision Resident Physician Supervision Note: I interviewed and examined the patient. Discussed with Dr. Hernadez and agree with findings and plan as documented in the note. Documented By: Nestor Langford Impression Primary Impression: Hypoglycemia Additional Impression: Urinary tract infection Scribe Attestation The scribe's documentation has been prepared under my direction and personally reviewed by me in its entirety. I confirm that the note above accurately reflects all work, treatment, procedures, and medical decision making performed by me. Departure Information Dispostion Home / Self-Care Prescriptions Fluconazole (DIFLUCAN) 100 Mg Tab 1 TAB PO DAILY for 14 Days, #14 TAB Prov: Roshan Hernadez MD 10/12/16 Ciprofloxacin Hcl (CIPRO) 500 Mg Tab 500 MG PO DAILY for 2 Days, #2 TAB Prov: Roshan Hernadez MD 10/12/16 Referrals Tsering Petersen M.D. (PCP) Patient Instructions My [facility] Problem Qualifiers Additional Impression: Urinary tract infection Urinary tract infection type: site unspecified Hematuria presence: without hematuria Qualified Codes: N39.0 - Urinary tract infection, site not specified
[2016-10-12 03:15] VITALS: BP 114/78; PULSE 95; O2SAT 97
--- NOTE | 2016-10-12 08:18 | DIAGNOSTIC IMAGING REPORT ---
SINGLE VIEW CHEST CLINICAL HISTORY: Atypical chest pain. FINDINGS: An AP, portable, upright chest radiograph is compared to study dated 06/14/2016. The examination is degraded by portable technique and patient rotation. The cardiomediastinal silhouette is unremarkable. Chronic interstitial thickening and minimal bibasilar atelectasis are similar to previous. No airspace consolidation or pleural effusion is identified. No pneumothorax is seen. The skeletal structures are osteopenic. There are healed bilateral rib fractures. There is chronic posttraumatic deformity of the left proximal humerus. IMPRESSION: No acute cardiopulmonary abnormality. Electronically signed by: Yossi Callahan M.D. 10/12/2016 8:17 AM Dictated Date/Time: 10/12/2016 8:16 AM
== END 2016-10-12 03:20 | disposition home or self-care (01) ==
LOC: EDBD 21:55 → C.EDA 21:56
DX: E11.649 Type 2 diabetes mellitus with hypoglycemia without coma (principal); N39.0 Urinary tract infection, site not specified; E78.5 Hyperlipidemia, unspecified; N18.3 Chronic kidney disease, stage 3 (moderate); K31.84 Gastroparesis; K21.9 Gastro-esophageal reflux disease without esophagitis; J44.9 Chronic obstructive pulmonary disease, unspecified; I50.32 Chronic diastolic (congestive) heart failure; K58.9 Irritable bowel syndrome, unspecified; M81.0 Age-related osteoporosis without current pathological fracture; M19.90 Unspecified osteoarthritis, unspecified site; I73.9 Peripheral vascular disease, unspecified; F32.9 Major depressive disorder, single episode, unspecified; G20 Parkinson's disease; M48.00 Spinal stenosis, site unspecified; Z87.81 Personal history of (healed) traumatic fracture; Z98.1 Arthrodesis status; Z98.51 Tubal ligation status; Z98.49 Cataract extraction status, unspecified eye; Z90.49 Acquired absence of other specified parts of digestive tract; Z87.891 Personal history of nicotine dependence; Z79.4 Long term (current) use of insulin; Z79.84 Long term (current) use of oral hypoglycemic drugs; Z79.899 Other long term (current) drug therapy; Z88.8 Allergy status to other drugs, medicaments and biological substances; Z83.3 Family history of diabetes mellitus; Z80.9 Family history of malignant neoplasm, unspecified

== ENCOUNTER 2017-03-09 13:11 | Emergency (ER) | payer OTHER ==
[~2017-03-09] VITALS: Ht 372.9 cm; Wt 86.8 kg
[~2017-03-09 13:11] MED LIST changes: -NF656 TD; +NYSS/ PO; +SULF-183 PO
[2017-03-09 13:21] VITALS: TEMP 36.5; Ht 372.9 cm; Wt 86.8 kg
[2017-03-09] MEDS ORDERED: DiphenhydrAMINE HCL 50 MG/ML VIAL IV STA (15:24)
[2017-03-09] MEDS ORDERED: CITA20TA9 PO (15:29)
[2017-03-09] MEDS ORDERED: DEXAMETHASONE SOD INJ 10 MG/ML VIAL IV ONE (15:30)
[2017-03-09] MEDS ORDERED: FLUCONAZOLE 50 MG TAB PO ONE (16:00)
[2017-03-09 16:05] LABS: BASO % 0.4 %; BASO ABS # 0.04 K/uL (0-0.2); BUN/CREATININE RATIO 16.2 (10-20); COMPLETE YES; CREATININE 1.42 mg/dl (0.60-1.20); EOS % 2.8 %; HEMATOCRIT 41.6 % (37-47); IG% 0.3 %; MEAN CELL VOLUME 96.3 fL (80-100); MEAN CORPUSCULAR HEMOGLOBIN 31.9 pg (25-34); MEAN CORPUSCULAR HGB CONC 33.2 g/dl (32-36); MEAN PLATELET VOLUME 10.3 fL (7.4-10.4); MONO % 10.8 %; NEUT % 53.7 %; PLATELET COUNT 323 K/uL (130-400); RED BLOOD COUNT 4.32 M/uL (4.2-5.4); WHITE BLOOD COUNT 9.37 K/uL (4.8-10.8)
[2017-03-09 16:44] VITALS: BP 109/55; PULSE 78; O2SAT 98
--- NOTE | 2017-03-09 21:21 | EMERGENCY ROOM VISIT NOTE ---
History Report prepared by Maged: Ml Corey Under the Supervision of: Dr. Godfrey Miranda M.D. First contact with patient: 15:05 Chief Complaint: FACIAL PAIN/INJURY Stated Complaint: LIP SWELLING History of Present Illness The patient is a 81 year old female who presents to the Emergency Room with complaints of worsening lip swelling beginning 4 days ago. The patient describes the pain as a burning pain. The patient's family states that the patient was placed on Bactrim for a UTI on the 18, and that the patient immediately developed the facial swelling. Per family, the patient stopped taking the Bactrim on the and was then placed on Ciprofloxacin. The patient states that her throat was hurting this morning but not anymore. The patient denies body or extremity rash, tongue swelling, shortness of breath, chest pain , fevers, and nausea. The rash is fairly unchanged although more painful today. She describes it as a burning sensation. She does not have a history of cold sores. She does state that she has had thrush in the past. Source of History: patient, family Onset: 4 days ago Position: lip Quality: burning Timing: worsening Associated Symptoms: + weakness, No fevers, No chest pain, No SOB, No nausea , No rash Review of Systems See HPI for pertinent positives & negatives. A total of 10 systems reviewed and were otherwise negative. Past Medical & Surgical Medical Problems: (1) Altered mental status (2) BPPV (benign paroxysmal positional vertigo) (3) Chronic diastolic CHF (congestive heart failure) (4) CKD (chronic kidney disease), stage III (5) COPD, mild (6) Depression (7) DM type 2 (diabetes mellitus, type 2) (8) Dyslipidemia (9) Gastroparesis (10) GERD (gastroesophageal reflux disease) (11) IBS (irritable bowel syndrome) (12) Lateral malleolar fracture (13) Left ulnar fracture (14) Osteoarthritis (15) Osteoporosis (16) Parkinson disease (17) possible sepsis (18) PVD (peripheral vascular disease) (19) Spinal stenosis Surgical Problems: (1) H/O spinal fusion (2) H/O tooth extraction (3) H/O tubal ligation (4) History of cataract surgery (5) History of cataract surgery (6) S/P cholecystectomy Family History Diabetes mellitus FH: cancer Social History Smoking Status: Current Every Day Smoker Alcohol Use: none Drug Use: none Marital Status: Housing Status: lives alone Occupation Status: retired Current/Historical Medications Scheduled Carbidopa/Levodopa (Sinemet 25MG/100MG), 1.5 TAB PO TID Citalopram Hydrobromide (Celexa), 20 MG PO DAILY Furosemide (Lasix), 20 MG PO DAILY Insulin Aspart (Novolog Flexpen), 7 UNITS SQ AC Insulin Glargine (Lantus Solostar), 12 UNITS SC HS Metformin Hcl (Glucophage), 500 MG PO BIDM Multiple Vitamins W/ Minerals (Multivitamin Adults 50+), 1 TAB PO DAILY Nystatin (Nystatin Suspension), 5 ML PO QID Omeprazole (Prilosec), 20 MG PO QAM Rasagiline Mesylate (Azilect), 1 MG PO QAM Simvastatin (Zocor), 20 MG PO HS Scheduled PRN Acetaminophen (Tylenol Arthritis Ext Rel), 650-1,300 MG PO BID PRN for Pain Albuterol Hfa (Ventolin Hfa), 2 PUFFS INH Q4 PRN for SOB/Wheezing Ipratropium [place] (Atrovent Hfa), 2 PUFFS INH Q4 PRN for SOB/Wheezing Loratadine (Claritin), 10 MG PO DAILY PRN for ALLERGIC REACTION Allergies Coded Allergies: Anesthetics, Amide (Verified Allergy, Unknown, UNKNOWN, 10/11/16) Celecoxib (Verified Allergy, Unknown, edema, 10/11/16) Pramipexole (Verified Allergy, Unknown, vomited, 10/11/16) Uncoded Allergies: TERRAMYCIN (Adverse Reaction, Intermediate, VOMITING, 10/06/15) Physical Exam Vital Signs Date Time Temp Pulse Resp B/P (MAP) Pulse Ox O2 Delivery O2 Flow Rate FiO2 03/09/17 16:44 78 18 109/55 98 Room Air 03/09/17 15:07 90 18 118/45 98 Room Air 03/09/17 13:21 36.5 106 20 105/65 93 Room Air Physical Exam Constitutional: Vital signs reviewed. Eyes: Pupils are equal round reactive to light. Conjunctiva are noninjected. ENT: Pharynx is clear without erythema or exudate. Mucous membranes are moist. Neck supple without meningeal signs. Dry erythematous rash to the upper and lower lip, mostly involving the lower lip with some swelling to the lower lip. No drainage or vesicles. No crusting. No evidence of thrush. Respiratory: Clear to auscultation bilaterally. Breath sounds are equal bilaterally. Cardiovascular: Regular rate and rhythm. No rubs or gallops. GI: Soft, nondistended and nontender. Bowel sounds are present. Musculoskeletal: No peripheral edema. No urticaria. Integumentary: No cyanosis. Neurological: The patient is awake and alert. No focal deficits. Psychiatric: Normal affect. Medical Decision & Procedures Laboratory Results 03/09/17 15:39 Red Blood Count 4.32, Mean Corpuscular Volume 96.3, Mean Corpuscular Hemoglobin 31.9, Mean Corpuscular Hemoglobin Concent 33.2, Mean Platelet Volume 10.3, Neutrophils (%) (Auto) 53.7, Lymphocytes (%) (Auto) 32.0, Monocytes (%) (Auto) 10.8, Eosinophils (%) (Auto) 2.8, Basophils (%) (Auto) 0.4, Neutrophils # (Auto ) 5.03, Lymphocytes # (Auto) 3.00, Monocytes # (Auto) 1.01, Eosinophils # (Auto ) 0.26, Basophils # (Auto) 0.04 03/09/17 15:39 Test 03/09/17 15:39 White Blood Count 9.37 K/uL (4.8-10.8) Red Blood Count 4.32 M/uL (4.2-5.4) Hemoglobin 13.8 g/dL (12.0-16.0) Hematocrit 41.6 % (37-47) Mean Corpuscular Volume 96.3 fL (80-100) Mean Corpuscular Hemoglobin 31.9 pg (25-34) Mean Corpuscular Hemoglobin Concent 33.2 g/dl (32-36) Platelet Count 323 K/uL (130-400) Mean Platelet Volume 10.3 fL (7.4-10.4) Neutrophils (%) (Auto) 53.7 % Lymphocytes (%) (Auto) 32.0 % Monocytes (%) (Auto) 10.8 % Eosinophils (%) (Auto) 2.8 % Basophils (%) (Auto) 0.4 % Neutrophils # (Auto) 5.03 K/uL (1.4-6.5) Lymphocytes # (Auto) 3.00 K/uL (1.2-3.4) Monocytes # (Auto) 1.01 K/uL (0.11-0.59) Eosinophils # (Auto) 0.26 K/uL (0-0.5) Basophils # (Auto) 0.04 K/uL (0-0.2) RDW Standard Deviation 46.6 fL (36.4-46.3) RDW Coefficient of Variation 13.2 % (11.5-14.5) Immature Granulocyte % (Auto) 0.3 % Immature Granulocyte # (Auto) 0.03 K/uL (0.00-0.02) Anion Gap 8.0 mmol/L (3-11) Est Creatinine Clear Calc Drug Dose 44.0 ml/min Estimated GFR () 40.6 Estimated GFR (Non- 35.0 BUN/Creatinine Ratio 16.2 (10-20) Calcium Level 9.0 mg/dl (8.5-10.1) Date/Time Source Procedure Growth Status 03/09/17 16:30 Nasal MRSA DNA Surveillance Screen - Final Specimen Negative for MRSA by DNA Probe Complete Laboratory results as reviewed by me. Medications Administered Medications (Trade) Dose Ordered Sig/Brian Route Start Time Stop Time Status Last Admin Dose Admin Dexamethasone Sodium Phosphate (Decadron Inj) 10 mg NOW ONCE IV 03/09/17 15:30 03/09/17 15:31 DC 03/09/17 15:41 10 MG Diphenhydramine HCl (Benadryl Inj) 50 mg NOW STAT IV 03/09/17 15:24 03/09/17 15:25 DC 03/09/17 15:41 50 MG Fluconazole (Diflucan Tab) 150 mg NOW ONCE PO 03/09/17 16:00 03/09/17 16:01 DC 03/09/17 16:05 150 MG ED Course 1505: The patient was evaluated in room C2. A complete history and physical exam was performed. 1524: Ordered Benadryl Inj 50 mg IV. 1530: Ordered Decadron Inj 10 mg IV. 1600: Ordered Fluconazole 150 mg PO. 1625: I reassessed the patient. I discussed the test results with the patient and her daughter. I recommended an anti-fungal cream and a follow-up with her doctor. 1630: Upon reevaluation, the patient appeared to have improvement of her symptoms. I discussed tonight's findings with her. She verbalized agreement of the treatment plan. She was discharged home. Medical Decision This is a 81-year-old female presents with a rash to her face. Differential diagnosis includes cellulitis, impetigo, tinea, herpes simplex, angioedema, allergic reaction. I did perform a limited focused review of portions of the patient's old chart on the electronic medical record. The patient has had no recent pertinent visits to this hospital. I did evaluate the patient as noted above. He shouldn't developed a rash to her face after starting Bactrim. She initially thought it was an allergic reaction and so stopped her Bactrim. She is currently on Cipro for a UTI. She is here because she has persistent rash to her face which is burning. I did do a MRSA nasal swab which was negative. IV access was established. I did treat the patient with Decadron and Benadryl IV. I did order and review the patient' s blood work as noted in the electronic medical record. Blood work is unremarkable. I did reassess the patient. She had no change in her symptoms. I do not feel her symptoms are likely allergic. She does have a prior history of thrush within about a case and so I was concerned about possible tinea. The rash is more characteristic of tinea rather than impetigo. It also started while she was on antibiotics to cover both MRSA and MSSA. I therefore treated patient with Diflucan 150 mg orally. She was advised to use Chlortrimazole cream 1% on the rash twice a day and to avoid getting it in her mouth. She was advised follow closely with her doctor and was discharged in good condition. Medication Reconcilliation Current Medication List: was personally reviewed by me Blood Pressure Screening Patient's blood pressure: Low blood pressure Impression Primary Impression: Tinea faciale Scribe Attestation The scribe's documentation has been prepared under my direct and personally reviewed by me in its entirety. I confirm that the note above accurately reflects all work, treatment, procedures, and medical decision making performed by me. Departure Information Dispostion Home / Self-Care Referrals Tsering Petersen M.D. (PCP) Forms HOME CARE DOCUMENTATION FORM, IMPORTANT VISIT INFORMATION Patient Instructions My [facility] Additional Instructions You have been examined and treated today on an emergency basis only. This is not a substitute for, or an effort to provide, complete comprehensive medical care. It is impossible to recognize and treat all injuries or illnesses in a single emergency department visit. It is therefore important that you follow up closely with your physician. Call as soon as possible for an appointment. Return for worsening symptoms or if you develop fever, vomiting, swelling to your tongue, throat, difficulty breathing or any other concerning symptoms. Apply clotrimazole cream 1% to your face over the rash but avoid getting it in your mouth. Use this twice a day.
== END 2017-03-09 16:53 | disposition home or self-care (01) ==
LOC: C.EDB 13:13 → C.EDC 16:53
DX: B35.8 Other dermatophytoses (principal); H81.10 Benign paroxysmal vertigo, unspecified ear; I50.9 Heart failure, unspecified; N18.3 Chronic kidney disease, stage 3 (moderate); J44.9 Chronic obstructive pulmonary disease, unspecified; E11.22 Type 2 diabetes mellitus with diabetic chronic kidney disease; E11.51 Type 2 diabetes mellitus with diabetic peripheral angiopathy without gangrene; F32.9 Major depressive disorder, single episode, unspecified; E78.5 Hyperlipidemia, unspecified; K21.9 Gastro-esophageal reflux disease without esophagitis; K58.9 Irritable bowel syndrome, unspecified; M19.90 Unspecified osteoarthritis, unspecified site; M81.0 Age-related osteoporosis without current pathological fracture; G20 Parkinson's disease; M48.00 Spinal stenosis, site unspecified; F17.200 Nicotine dependence, unspecified, uncomplicated; Z79.4 Long term (current) use of insulin; Z79.84 Long term (current) use of oral hypoglycemic drugs; Z83.3 Family history of diabetes mellitus

== ENCOUNTER 2017-07-17 11:22 | Emergency (ER) | payer OTHER ==
[~2017-07-17] VITALS: Ht 157.5 cm; Wt 88.9 kg
[~2017-07-17 11:22] MED LIST changes: +CITA20TA9 PO; -HYDR-5688 PO; -LISI2.5T5 PO; -SULF-183 PO
[2017-07-17 11:35] VITALS: Ht 157.5 cm; Wt 88.9 kg
[2017-07-17 11:42] VITALS: O2SAT 96
[2017-07-17] MEDS ORDERED: IPRASOL4 INH (11:53)
[2017-07-17] MEDS ORDERED: HYDR-5688 PO (11:53)
[2017-07-17] MEDS ORDERED: FURO-85 PO (11:53)
[2017-07-17] MEDS ORDERED: SODIUM CHLORIDE 0.9% 1000ML 500 ML IV STA (12:01)
[2017-07-17] MEDS ORDERED: ACETAMINOPHEN 325 MG TAB PO STA (12:01)
--- NOTE | 2017-07-17 12:12 | EMERGENCY ROOM VISIT NOTE ---
History Report prepared by Maged: Dante Slade Under the Supervision of: Dr. Yossi Love M.D. First contact with patient: 11:57 Chief Complaint: COUGH Stated Complaint: DIFFICULTY BREATHING/FALL W/ ANKLE INJURY Nursing Triage Summary: nonproductive cough for 2 weeks pt saw pcp placed on antibiotics and given nebulizer pt reports "not getting better" no fever no nasal congestion pt also fell today and injured right ankle pt has plates in r ankle from previous surgery pt has bilateral pedal edema, normal for patient but right ankle worse after fall History of Present Illness The patient is a 81 year old female who presents to the Emergency Room with complaints of persistent cough and shortness of breath that she has been experiencing for the past two weeks. The patient states that she has also had some chest pain over the right side of her chest for about the past 1.5 weeks. She describes this pain as a "tightness." She did visit with her primary care physician recently, and had a chest x-ray performed. This imaging was unremarkable. She was given an antibiotic and home nebulizer treatment. The patient adds that she has felt improvement of her symptoms with the nebulizer, and most recently used it at 0400 this morning, 8 hours ago. She has a history of COPD, but denies any past episodes of pneumonia or myocardial infarction. The patient has had many close contacts diagnosed with influenza this year. The patient came to the emergency department secondary to a mechanical fall this morning. She states that she was standing up in the bathroom when she twisted her right ankle and fell. She has broken the right ankle in the past and has hardware in place. There was no loss of consciousness from this fall. Source of History: patient Onset: 2 weeks Position: other (Respiratory) Quality: other (Cough, SOB) Timing: other (Persistent) Associated Symptoms: + chest pain Note: Right ankle pain from fall Review of Systems See HPI for pertinent positives & negatives. A total of 10 systems reviewed and were otherwise negative. Past Medical & Surgical Medical Problems: (1) Altered mental status (2) BPPV (benign paroxysmal positional vertigo) (3) Chronic diastolic CHF (congestive heart failure) (4) CKD (chronic kidney disease), stage III (5) COPD, mild (6) Depression (7) DM type 2 (diabetes mellitus, type 2) (8) Dyslipidemia (9) Gastroparesis (10) GERD (gastroesophageal reflux disease) (11) IBS (irritable bowel syndrome) (12) Lateral malleolar fracture (13) Left ulnar fracture (14) Osteoarthritis (15) Osteoporosis (16) Parkinson disease (17) possible sepsis (18) PVD (peripheral vascular disease) (19) Spinal stenosis Surgical Problems: (1) H/O spinal fusion (2) H/O tooth extraction (3) H/O tubal ligation (4) History of cataract surgery (5) History of cataract surgery (6) S/P cholecystectomy Family History Diabetes mellitus FH: cancer Social History Smoking Status: Former Smoker Alcohol Use: none Drug Use: none Marital Status: Housing Status: lives alone Occupation Status: retired Current/Historical Medications Scheduled Azithromycin (Zithromax Z-Darin), 0 PO UD Carbidopa/Levodopa (Sinemet 25MG/100MG), 1.5 TAB PO TID Furosemide (Lasix), 20 MG PO Q2D Insulin Aspart (Novolog Flexpen), 10 UNITS SQ AC Insulin Glargine (Lantus Solostar), 15 UNITS SC HS Ipratropium-Albuterol (Duoneb), 1 TREATMENT INH DIRECTED Magnesium Oxide (Mag-Ox), 1 TAB PO DAILY Metformin Hcl (Glucophage), 500 MG PO BIDM Multiple Vitamins W/ Minerals (Multivitamin Adults 50+), 1 TAB PO DAILY Omeprazole (Prilosec), 20 MG PO QAM Rasagiline Mesylate (Azilect), 1 MG PO QAM Simvastatin (Zocor), 20 MG PO HS Scheduled PRN Acetaminophen (Tylenol Arthritis Ext Rel), 650-1,300 MG PO BID PRN for Pain Albuterol Hfa (Ventolin Hfa), 2 PUFFS INH Q4 PRN for SOB/Wheezing Hydrocodone/Acetaminophen 5MG/325MG ([place] 5MG/325MG), 1 TABLET PO Q6 PRN for Mild Pain Loratadine (Claritin), 10 MG PO DAILY PRN for ALLERGIC REACTION Allergies Coded Allergies: Anesthetics, Amide (Verified Allergy, Unknown, UNKNOWN, 10/11/16) Celecoxib (Verified Allergy, Unknown, edema, 10/11/16) Pramipexole (Verified Allergy, Unknown, vomited, 10/11/16) Uncoded Allergies: TERRAMYCIN (Adverse Reaction, Intermediate, VOMITING, 10/06/15) Physical Exam Vital Signs Date Time Temp Pulse Resp B/P (MAP) Pulse Ox O2 Delivery O2 Flow Rate FiO2 07/17/17 16:17 93 104/87 94 07/17/17 15:21 92 20 96 Room Air 07/17/17 14:56 96 20 109/52 99 07/17/17 13:57 36.5 97 20 91/50 97 Room Air 07/17/17 11:50 110 07/17/17 11:42 96 Room Air 07/17/17 11:35 98 Room Air 07/17/17 11:35 36.8 116 20 106/69 96 Room Air Physical Exam GENERAL: Patient is in no acute distress. HEENT: No acute trauma, normocephalic atraumatic, mucous membranes moist, no nasal congestion, no scleral icterus. NECK: No stridor, no adenopathy, no meningismus, trachea is midline. LUNGS: Clear to auscultation bilaterally, no wheeze, no rhonchi, breath sounds equal. Dry cough noted HEART: Tachycardic with a regular rhythm no murmurs. CHEST: Tender to the anterior chest wall. ABDOMEN: Soft, nontender, bowel sounds positive, no hernias, no peritonitis. EXTREMITIES: There is mild pedal edema without gross deformities. The right Achilles is intact. There is swelling of the right ankle compared to the left. The right ankle is diffusely tender. NEUROLOGIC: Oriented x 3, no acute motor or sensory deficits, no focal weakness. SKIN: No rash, no jaundice, no diaphoresis. Medical Decision & Procedures ER Provider Diagnostic Interpretation: Radiology results as stated below per my review and radiologist interpretation: R ANKLE MIN 3 VIEWS ROUTINE CLINICAL HISTORY: fall, right ankle pain COMPARISON: Right ankle radiographs October 05, 2015. FINDINGS: Distal right fibular plate and screws are noted. Hardware is intact. There is no acute fracture the right ankle. Chronic distal right fibular deformity represents old fracture. Irregularity of the medial malleolus is old. There is mild ankle soft tissue swelling. IMPRESSION: 1. No acute fracture or dislocation of the right ankle. 2. Unchanged postoperative appearance of the right ankle status post internal fixation. Electronically signed by: Jonnie Rodriguez M.D. 07/17/2017 1:00 PM Dictated Date/Time: 07/17/2017 12:58 PM CHEST ONE VIEW PORTABLE CLINICAL HISTORY: EVALUATE RESPIRATORY DISTRESS.DYSPNEA COMPARISON STUDY: Chest radiograph October 12, 2016. FINDINGS: Chronic deformity of the left humeral head is noted. There are old bilateral rib fractures. Minimal left basilar opacity favors atelectasis. There is no consolidation to suggest pneumonia and there is no evidence for pulmonary edema. Cardiomediastinal silhouette is stable. IMPRESSION: No acute cardiopulmonary findings. Electronically signed by: Jonnie Rodriguez M.D. 07/17/2017 12:57 PM Dictated Date/Time: 07/17/2017 12:56 PM (CHEST FOR PE) ANGIO WITH CT DOSE: 441.44 mGy.cm HISTORY: Chest pain dyspnea TECHNIQUE: Multiaxial CT images of the chest were performed following the intravenous administration of contrast to evaluate the pulmonary arteries. Maximal intensity projection images were also obtained. A dose lowering technique was utilized adhering to the principles of ALARA. COMPARISON STUDY: 07/26/2011 FINDINGS: There is a normal caliber thoracic aorta with no evidence for dissection. There is no evidence for pulmonary embolus. No pleural effusions. No pneumothorax. The liver and spleen are unremarkable. No mediastinal or hilar lymphadenopathy. The central airways are patent. The lungs are clear. There are components of emphysematous change. IMPRESSION: No evidence for pulmonary embolus. Emphysematous change. No acute infiltrate. The above report was generated using voice recognition software. It may contain grammatical, syntax or spelling errors. Electronically signed by: Kevin Avelar M.D. 07/17/2017 2:48 PM Dictated Date/Time: 07/17/2017 2:45 PM Laboratory Results 07/17/17 12:20 Red Blood Count 3.92, Mean Corpuscular Volume 95.2, Mean Corpuscular Hemoglobin 31.6, Mean Corpuscular Hemoglobin Concent 33.2, Mean Platelet Volume 10.5, Neutrophils (%) (Auto) 72.0, Lymphocytes (%) (Auto) 15.2, Monocytes (%) (Auto) 9.8, Eosinophils (%) (Auto) 2.1, Basophils (%) (Auto) 0.3, Neutrophils # (Auto) 7.38, Lymphocytes # (Auto) 1.56, Monocytes # (Auto) 1.00, Eosinophils # (Auto) 0.21, Basophils # (Auto) 0.03 07/17/17 12:20 Test 07/17/17 12:20 07/17/17 12:25 White Blood Count 10.24 K/uL (4.8-10.8) Red Blood Count 3.92 M/uL (4.2-5.4) Hemoglobin 12.4 g/dL (12.0-16.0) Hematocrit 37.3 % (37-47) Mean Corpuscular Volume 95.2 fL (80-100) Mean Corpuscular Hemoglobin 31.6 pg (25-34) Mean Corpuscular Hemoglobin Concent 33.2 g/dl (32-36) Platelet Count 282 K/uL (130-400) Mean Platelet Volume 10.5 fL (7.4-10.4) Neutrophils (%) (Auto) 72.0 % Lymphocytes (%) (Auto) 15.2 % Monocytes (%) (Auto) 9.8 % Eosinophils (%) (Auto) 2.1 % Basophils (%) (Auto) 0.3 % Neutrophils # (Auto) 7.38 K/uL (1.4-6.5) Lymphocytes # (Auto) 1.56 K/uL (1.2-3.4) Monocytes # (Auto) 1.00 K/uL (0.11-0.59) Eosinophils # (Auto) 0.21 K/uL (0-0.5) Basophils # (Auto) 0.03 K/uL (0-0.2) RDW Standard Deviation 48.1 fL (36.4-46.3) RDW Coefficient of Variation 14.0 % (11.5-14.5) Immature Granulocyte % (Auto) 0.6 % Immature Granulocyte # (Auto) 0.06 K/uL (0.00-0.02) Prothrombin Time 10.6 SECONDS (9.0-12.0) Prothromb Time International Ratio 1.0 (0.9-1.1) Activated Partial Thromboplast Time 26.4 SECONDS (21.0-31.0) Partial Thromboplastin Ratio 1.0 Anion Gap 11.0 mmol/L (3-11) Est Creatinine Clear Calc Drug Dose 34.5 ml/min Estimated GFR () 42.4 Estimated GFR (Non- 36.6 BUN/Creatinine Ratio 16.9 (10-20) Calcium Level 8.3 mg/dl (8.5-10.1) Magnesium Level 1.3 mg/dl (1.8-2.4) Total Bilirubin 0.4 mg/dl (0.2-1) Aspartate Amino Transf (AST/SGOT) 16 U/L (15-37) Alanine Aminotransferase (ALT/SGPT) 12 U/L (12-78) Alkaline Phosphatase 124 U/L (45-117) Troponin I < 0.015 ng/ml (0-0.045) Total Protein 6.9 gm/dl (6.4-8.2) Albumin 3.0 gm/dl (3.4-5.0) Globulin 3.9 gm/dl (2.5-4.0) Albumin/Globulin Ratio 0.8 (0.9-2) Beta-Hydroxybutyric Acid 1.75 mg/dL (0.2-2.81) Influenza Type A Antigen Neg for Influ A (NEG) Influenza Type B Antigen Neg for Influ B (NEG) Laboratory results reviewed by me. Medications Administered Medications (Trade) Dose Ordered Sig/Brian Route Start Time Stop Time Status Last Admin Dose Admin Sodium Chloride 500 ml @ 999 mls/hr Q31M STAT IV 07/17/17 12:01 07/17/17 12:31 DC 07/17/17 12:33 999 MLS/HR Acetaminophen (Tylenol Tab) 650 mg NOW STAT PO 07/17/17 12:01 07/17/17 12:06 DC 07/17/17 12:33 650 MG Magnesium Oxide (Mag-Ox Tab) 400 mg NOW STAT PO 07/17/17 13:27 07/17/17 13:29 DC 07/17/17 13:54 400 MG Insulin Human Regular (novoLIN-R U-100 PER UNIT) 10 units NOW STAT IV 07/17/17 13:27 07/17/17 13:29 DC 07/17/17 13:56 10 UNITS Sodium Chloride 500 ml @ 999 mls/hr Q31M STAT IV 07/17/17 13:27 07/17/17 13:57 DC 07/17/17 13:56 999 MLS/HR Levalbuterol (Xopenex 1.25MG/ 0.5ML Neb) 1.25 mg NOW STAT INH 07/17/17 14:54 07/17/17 14:55 DC 07/17/17 15:21 1.25 MG Ipratropium [place] (Atrovent 0.02% 0.5MG/2.5ML Neb) 0.5 mg NOW STAT INH 07/17/17 14:54 07/17/17 14:55 DC 07/17/17 15:20 0.5 MG Azithromycin (Zithromax Tab) 500 mg NOW STAT PO 07/17/17 14:54 07/17/17 14:55 DC 07/17/17 15:31 500 MG ECG Per My Interpretation Indication: SOB/dyspnea Rate (beats per minute): 112 Rhythm: sinus tachycardia Findings: other (No PVCs no ST elevation) ED Course 1158: The patient was evaluated in room A11B. A complete history and physical exam was performed. 1201: Ordered Acetaminophen 650 mg PO. Sodium Chloride 500 mL @ 999 mL/rh IV. 1327: Ordered Sodium Chloride 500 mL @ 999 mL/hr IV, Regular Human Insulin 10 units IV, Magnesium Oxide 400 mg PO. 1454: Ordered Azithromycin 500 mg PO. 1521: Reevaluated the patient. Discussed results and discharge instructions: She verbalized understanding and agreement. The patient is ready for discharge. Medical Decision Differential Diagnosis includes; Ankle fracture/sprain, pneumonia or bronchitis , CHF, exacerbation of COPD, pulmonary embolism, cardiac ischemia, anemia, dehydration, electrolyte imbalance. There is no leukocytosis or concerning anemia. No kidney failure. Sugar was high in the mid 300s. Magnesium low at 1.3. No hepatitis. Chest x-ray does not show pneumonia, pneumothorax or CHF. EKG showed a mild sinus tachycardia, no acute ischemia. Cardiac enzyme testing times one is not consistent with acute cardiac injury. Right ankle film does not show evidence for fracture, her hardware is in place. Chest CT does not show PE or pneumonia. Influenza testing returned negative. The patient received IV saline, she received 2 boluses of 500 mL of saline. She received IV insulin for the high sugar, repeat BSG showed a sugar in the 80s. She received oral Zithromax and oral magnesium. She was given a Xopenex Atrovent neb. She received oral Tylenol for the chest discomfort. The patient presents with persistent cough. I think she has bronchitis with a flare of her COPD. Her chest pain appears musculoskeletal--it is reproducible. The tachycardia upon arrival was likely from dehydration. Her tachycardia has improved with fluids, her sugar has improved with IV insulin. She is not hypoxic or toxic. She is being discharged. She will have frequent albuterol use, Zithromax as an antibiotic. Outpatient follow-up has been suggested. If worsening, she can return. I will have her take a few more doses of magnesium as an outpatient, her magnesium level can be rechecked next week. Of note, I think the ankle is only sprained. Impression Primary Impression: Acute bronchitis Additional Impressions: COPD exacerbation Dehydration Hyperglycemia Right ankle sprain Scribe Attestation The scribe's documentation has been prepared under my direction and personally reviewed by me in its entirety. I confirm that the note above accurately reflects all work, treatment, procedures, and medical decision making performed by me. Departure Information Dispostion Home / Self-Care Prescriptions Magnesium Oxide (MAG-OX) 400 Mg Tab 1 TAB PO DAILY for 4 Days, #4 TAB Prov: Yossi Love M.D. 07/17/17 Azithromycin (ZITHROMAX Z-DARIN) 250 Mg Tab 0 PO UD, #1 PKT Prov: Yossi Love M.D. 07/17/17 Referrals Tsering Petersen M.D. (PCP) Forms HOME CARE DOCUMENTATION FORM, IMPORTANT VISIT INFORMATION Patient Instructions My [facility] Additional Instructions ice may help the ankle pain and swelling--30 minutes at a time use nebulizer every 4-6 hours keep a good watch on your blood sugar zithromax as directed stay well hydrated rest see emeli whitmore for a recheck in a few days have your doctor recheck your magnesium next week use mag ox daily for next 4 days Problem Qualifiers
[2017-07-17] MEDS ORDERED: OPTIRAY 320 IV PRN (12:15)
[2017-07-17 12:57] LABS: INFLUENZA B ANTIGEN Neg for Influ B (NEG)
[2017-07-17 12:58] LABS: BASO % 0.3 %; BASO ABS # 0.03 K/uL (0-0.2); EOS % 2.1 %; EOS ABS # 0.21 K/uL (0-0.5); HEMATOCRIT 37.3 % (37-47); HEMOGLOBIN 12.4 g/dL (12.0-16.0); IG# 0.06 K/uL (0.00-0.02); LYMPH % 15.2 %; LYMPH ABS # 1.56 K/uL (1.2-3.4); MEAN CELL VOLUME 95.2 fL (80-100); MEAN CORPUSCULAR HEMOGLOBIN 31.6 pg (25-34); MEAN CORPUSCULAR HGB CONC 33.2 g/dl (32-36); MEAN PLATELET VOLUME 10.5 fL (7.4-10.4); MONO % 9.8 %; NEUT ABS # 7.38 K/uL (1.4-6.5); PLATELET COUNT 282 K/uL (130-400); RED CELL DISTRIBUTION WIDTH SD 48.1 fL (36.4-46.3); WHITE BLOOD COUNT 10.24 K/uL (4.8-10.8)
--- NOTE | 2017-07-17 12:59 | DIAGNOSTIC IMAGING REPORT ---
CHEST ONE VIEW PORTABLE CLINICAL HISTORY: EVALUATE RESPIRATORY DISTRESS.DYSPNEA COMPARISON STUDY: Chest radiograph October 12, 2016. FINDINGS: Chronic deformity of the left humeral head is noted. There are old bilateral rib fractures. Minimal left basilar opacity favors atelectasis. There is no consolidation to suggest pneumonia and there is no evidence for pulmonary edema. Cardiomediastinal silhouette is stable. IMPRESSION: No acute cardiopulmonary findings. Electronically signed by: Jonnie Rodriguez M.D. 07/17/2017 12:57 PM Dictated Date/Time: 07/17/2017 12:56 PM
--- NOTE | 2017-07-17 13:01 | DIAGNOSTIC IMAGING REPORT ---
R ANKLE MIN 3 VIEWS ROUTINE CLINICAL HISTORY: fall, right ankle pain COMPARISON: Right ankle radiographs October 05, 2015. FINDINGS: Distal right fibular plate and screws are noted. Hardware is intact. There is no acute fracture the right ankle. Chronic distal right fibular deformity represents old fracture. Irregularity of the medial malleolus is old. There is mild ankle soft tissue swelling. IMPRESSION: 1. No acute fracture or dislocation of the right ankle. 2. Unchanged postoperative appearance of the right ankle status post internal fixation. Electronically signed by: Jonnie Rodriguez M.D. 07/17/2017 1:00 PM Dictated Date/Time: 07/17/2017 12:58 PM
[2017-07-17 13:06] LABS: ALT/SGPT 12 U/L (12-78); AST/SGOT 16 U/L (15-37); BLOOD UREA NITROGEN 23 mg/dl (7-18); CALCIUM 8.3 mg/dl (8.5-10.1); CARBON DIOXIDE 23 mmol/L (21-32); CREATININE 1.37 mg/dl (0.60-1.20); GLUCOSE 356 mg/dl (70-99); POTASSIUM 4.2 mmol/L (3.5-5.1); PTT PATIENT 26.4 SECONDS (21.0-31.0); SODIUM 136 mmol/L (136-145)
[2017-07-17 13:16] LABS: ALKALINE PHOSPHATASE 124 U/L (45-117); TOTAL PROTEIN 6.9 gm/dl (6.4-8.2)
[2017-07-17] MEDS ORDERED: SODIUM CHLORIDE 0.9% 500ML 500 ML IV STA (13:27)
[2017-07-17] MEDS ORDERED: NovoLIN-R INSULIN PER UNIT CHARGE IV STA (13:27)
[2017-07-17] MEDS ORDERED: MAGNESIUM OXIDE 400 MG TAB PO STA (13:27)
[2017-07-17 13:57] VITALS: TEMP 36.5
--- NOTE | 2017-07-17 14:49 | DIAGNOSTIC IMAGING REPORT ---
(CHEST FOR PE) ANGIO WITH CT DOSE: 441.44 mGy.cm HISTORY: Chest pain dyspnea TECHNIQUE: Multiaxial CT images of the chest were performed following the intravenous administration of contrast to evaluate the pulmonary arteries. Maximal intensity projection images were also obtained. A dose lowering technique was utilized adhering to the principles of ALARA. COMPARISON STUDY: 07/26/2011 FINDINGS: There is a normal caliber thoracic aorta with no evidence for dissection. There is no evidence for pulmonary embolus. No pleural effusions. No pneumothorax. The liver and spleen are unremarkable. No mediastinal or hilar lymphadenopathy. The central airways are patent. The lungs are clear. There are components of emphysematous change. IMPRESSION: No evidence for pulmonary embolus. Emphysematous change. No acute infiltrate. The above report was generated using voice recognition software. It may contain grammatical, syntax or spelling errors. Electronically signed by: Kevin Avelar M.D. 07/17/2017 2:48 PM Dictated Date/Time: 07/17/2017 2:45 PM
[2017-07-17] MEDS ORDERED: IPRATROPIUM BROMIDE NEB SOLN 0.02% 2.5 ML VIAL INH STA (14:54)
[2017-07-17] MEDS ORDERED: LEVALBUTEROL 1.25MG/0.5ML NEB INH STA (14:54)
[2017-07-17] MEDS ORDERED: AZITHROMYCIN 250 MG TAB PO STA (14:54)
[2017-07-17 15:21] VITALS: PULSE 92; O2SAT 96
[2017-07-17] MEDS ORDERED: AZITTAB PO (15:37)
[2017-07-17] MEDS ORDERED: MAGN400T5 PO (15:39)
[2017-07-17 16:17] VITALS: BP 104/87; PULSE 93; O2SAT 94
== END 2017-07-17 16:20 | disposition home or self-care (01) ==
LOC: EDBD 11:22 → C.EDA 11:23
DX: J44.0 Chronic obstructive pulmonary disease with (acute) lower respiratory infection (principal); R05 Cough; R06.00 Dyspnea, unspecified; E86.0 Dehydration; S93.401A Sprain of unspecified ligament of right ankle, initial encounter; X50.9XXA Other and unspecified overexertion or strenuous movements or postures, initial encounter; Y92.002 Bathroom of unspecified non-institutional (private) residence as the place of occurrence of the external cause; Z79.899 Other long term (current) drug therapy; E11.22 Type 2 diabetes mellitus with diabetic chronic kidney disease; N18.3 Chronic kidney disease, stage 3 (moderate); E11.65 Type 2 diabetes mellitus with hyperglycemia; Z88.8 Allergy status to other drugs, medicaments and biological substances